=== PATIENT | female | born 1930 | race Caucasian/White ===

== ENCOUNTER 2016-05-30 15:17 | Inpatient (IN) | payer OTHER, MEDICARE ==
[~2016-05-30] VITALS: Ht 154.9 cm; Wt 49.9 kg
[~2016-05-30 15:17] MED LIST: ACEPHEN650 M1 PR; APAP500 MG PO; ASPI-COR81 M1 PO; ATORVASTATIN CA20 MG PO; BISACODYL PR; CALCIUM + D 6001 TAB PO; CRESTOR 10MG10 MG PO; DOCUSATE SODIU100 MG PO; FERROUS GLUCON300 MG PO; FISH OIL CONC1000 MG PO; FLEET ENEMA 131 UNIT RC; FOSAMAX 70MG70 MG PO; LEXAPRO 10MG10 MG PO; LOPRESSOR50 MG PO; METFORMIN HCL500 MG PO; MILK OF MAGNESI30 ML PO; NAMENDA10 MG PO; PRINIVIL 5MG5 MG PO; XARELTO10 MG PO
--- NOTE | 2016-05-30 15:23 | ED AMS/SEIZURE/WEAK/DIZZY ---
History of Present Illness General Chief Complaint: Altered Mental Status Stated Complaint: SENT FROM DR JULIO OFFICE FOR AMS Source: patient Exam Limitations: no limitations Allergies Coded Allergies: No Known Allergies (05/30/16) Reconcile Medications Acetaminophen (Acephen) 650 MG SUPP.RECT 1 SUPP NC Q4H PRN PAIN/TEMP>101 ( Reported) Acetaminophen 325 MG TABLET 2 TAB PO Q4H PRN PAIN/TEMP>101 (Reported) Aspirin (Ecotrin*) 81 MG TABLET.DR 1 TAB PO DAILY HEART/BLOOD (Reported) Atorvastatin Calcium (Lipitor) 20 MG TABLET 1 TAB PO DAILY CHOLESTEROL ( Reported) Bisacodyl (Dulcolax) 10 MG SUPP.RECT 1 SUP RC DAILY PRN CONSTIPATION ( Reported) Calcium Carbonate/Vitamin D3 (Oyster Shell 500 MG + Vit D Tb) (Unknown Strength) TABLET 1 TAB PO QAM SUPPLEMENT (Reported) Dimethicone (Proshield Plus) (Unknown Strength) OINT...G. 1 RADHA TOP TID REDNESS ON BUTTOCKS (Reported) Escitalopram Oxalate (Lexapro) 10 MG TABLET 1 TAB PO DAILY MENTAL HEALTH ( Reported) Lidocaine HCl 2 % JEL..ML. 1 RADHA TOP TID BOTH HANDS (Reported) Lisinopril (Prinivil) 5 MG TABLET 1 TAB PO DAILY BP (Reported) Magnesium Hydroxide (Milk Of Magnesia) 400 MG/5 ML ORAL.SUSP 30 ML PO Q3D PRN CONSTIPATION (Reported) Memantine HCl (Namenda) 10 MG TABLET 1 TAB PO BID MEMORY (Reported) Metoprolol Tartrate (Unknown Strength) TABLET 12.5 MG PO Q12H HEART/BP ( Reported) Na Phos,M-B/Na Phos,Di-Ba (Fleet Enema) 19 GRAM-7 GRAM/118 ML ENEMA 1 E RC DAILY PRN CONSTIPATION (Reported) Naloxone HCl (Narcan) 4 MG/ACTUATION SPRAY 4 MG LATASHA AD PRN OPIOID INDUCED RESP DEPRESSION (Reported) Sulfamethoxazole/Trimethoprim (Bactrim Ds Tablet) 800 MG-160 MG TABLET 1 TAB PO BID UTI Tizanidine HCl 2 MG TABLET 1.5 TAB PO BID MUSCLE RELAXER (Reported) Tizanidine HCl (Zanaflex) 2 MG CAPSULE 1 CAP PO QHS MUSCLE RELAXER (Reported) Triage Nurses Notes Reviewed? yes Onset: Abrupt Duration: minute(s): (15) Timing: single episode today Injury Environment: IN DR CANO'S OFFICE Severity: severe Associated Symptoms: UNRESPONSIVE HPI: This is an 86 year old female who presents to the ER from Dr. Cano's office for being found unresponsive in the wheelchair. According to Dr. Cano patient was there for a scheduled 3 month checkup from the nursing facility. The patients aid at bedside states that she is ususlly much more alert and talkative. Patient with stable vital signs, stable gluocse, only responsive to painful stimuli. (FARIDEH WILLAMS,MANSI) Vital Signs & Intake/Output Vital Signs & Intake/Output Vital Signs Date Time Temp Pulse Resp B/P Pulse O2 O2 Flow FiO2 Ox Delivery Rate 06/02 1304 98.4 86 18 138/72 06/02 1200 86 138/72 ED Intake and Output 06/03 0000 06/02 1200 Intake Total 420 Output Total 350 Balance 70 Intake, IV 320 Intake, Oral 100 Number 2 Bowel Movements Output, Urine 350 Past History Travel History Traveled to [place] past 21 day No Medical History Any Pertinent Medical History? see below for history Neurological: dementia Cardiovascular: hypertension, hyperlipidemia Musculoskeletal: OSTEOARTHRITIS L HIP FX 08/15/13 Psychiatric: depression History of MRSA: No History of VRE: No History of CDIFF: No Surgical History Surgical History: non-contributory Psychosocial History Who do you live with Family Services at Home None What is your primary language Mohawk Family History Family History, If Any: MOTHER FH: diabetes mellitus Hx Contributory? No (MANSI GONG MD) Review of Systems Review of Systems Constitutional: Reports: see HPI (UNABLE TO OBTAIN). Neurological/Psychological: Reports: see HPI (AMS). (MANSI GONG MD) Physical Exam Physical Exam General Appearance: well developed/nourished, lethargic, moderate distress, EYES CLOSED Head: atraumatic, normal appearance Eyes: Bilateral: PERRL. Ears, Nose, Throat: DRY MUCUS MEMBRANES Neck: normal inspection, supple Respiratory: normal breath sounds, chest non-tender, no respiratory distress Cardiovascular: regular rate/rhythm Peripheral Pulses: 2+ radial (R), 2+ radial (L) Gastrointestinal: soft, non-tender Extremities: normal range of motion Neurologic/Psych: LETHARGIC, UNRESPONSIVE Skin: intact, normal color, warm/dry Core Measures ACS in differential dx? No CVA/TIA Diagnosis: No Severe Sepsis Present: No Septic Shock Present: No (FARIDEH WILLAMS,MANSI) ED Sepsis Exam Date of Focused Sepsis Exam: 05/30/16 Time of Focused Sepsis Exam: 1530 Sepsis Cardiac Exam: Regular Rate/Rhythm Sepsis Resp Exam: CTA Sepsis Cap Refill Exam: <2 Sec Sepsis Peripheral Pulse Exam: Normal Sepsis Peripheral Pulse Location: Radial Sepsis Skin Color Exam: Normal for Ethnicity Skin Temp/Moisture Exam: Warm/Dry (MANSI GONG MD) Progress Differential Diagnosis: arrythmia, CVA/stroke, dehydration, encephalitis, electrolyte imbalance, hypoxia, intracranial Hem., intracranial mass/tumor, sepsis, UTI/pyelo Diagnostic Imaging: Viewed by Me: Radiology Read, CT Scan. Discussed w/RAD: Radiology Read, CT Scan. Radiology Impression: PATIENT: KATARINA ORTEGA PRESENT AGE: 86 PATIENT ACCOUNT NO: [id number] : 32 LOCATION: [facility] ORDERING PHYSICIAN: MANSI GONG MD SERVICE DATE: 05/30/16 EXAM TYPE: CAT - CT HEAD WO IV CONTRAST EXAMINATION: CT HEAD WITHOUT CONTRAST CLINICAL INFORMATION: Altered mental status. Rule out stroke. COMPARISON: Head CT dated 12/09/2014. TECHNIQUE: Contiguous axial imaging was performed from the skull base to vertex without intravenous administration of contrast. DLP: 600.71 mGy-cm FINDINGS: There is no evidence of acute intracranial hemorrhage or territorial infarction. No abnormal mass effect or midline shift is seen. Briggs to white matter differentiation is well preserved. No extra-axial fluid collections are identified. 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 There is diffuse parenchymal volume loss. Severe chronic white matter microangiopathy is noted. 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 The osseous structures and soft tissues are normal. The mastoid air cells and are well aerated. There is a small fluid level in the dependent portion of the left sphenoid sinus. IMPRESSION: Severe chronic white matter microangiopathy and diffuse parenchymal volume loss. No acute intracranial hemorrhage. The possibility of a focal acute ischemic process cannot be ruled out on the basis of this study given extent of white matter disease. DICTATED BY: MATTHIAS WILHELM MD DATE/TIME DICTATED:05/30/161610 GRINDER OPERATOR TOOL:CIRA DATE/TIME TRANSCRIBED:02/17/17 / 1611 CONFIDENTIAL, DO NOT COPY WITHOUT APPROPRIATE AUTHORIZATION. <Electronically signed in Other Vendor System> SIGNED BY: MATTHIAS WILHELM MD 05/30/16 1617 Initial ED EKG: NSR, LAD, PACS Rhythm Strip: normal sinus rhythm (MANSI GONG MD) Plan of Care: Orders Procedure Date/time Status Treatment of Swallowing 06/02 UNK Complete labs, cultures, ekg, tele monitor. IV fluid bolus ordered. abg, ammonia ordered. head ct, cxr. (MANSI GONG MD) Departure Departure Time of Disposition: 1804 Disposition: STILL A PATIENT Condition: Stable Clinical Impression Primary Impression: Altered mental status Secondary Impressions: Lactic acid acidosis, Prolonged Q-T interval on ECG, Syncope, UTI (urinary tract infection) Referrals: BRIA TATE MD (PCP/Family) Departure Forms: Customer Survey General Discharge Information Prescriptions: Current Visit Scripts Sulfamethoxazole/Trimethoprim (Bactrim Ds Tablet) 1 TAB PO BID #8 TAB Admission Note Spoke With: BRIA TATE MD Documentation of Exam: Documentation of any treatments & extenuating circumstances including Concerns Regarding Discharge (functional status, medication knowledge or non-compliance, living conditions, etc.) that warrant an admission rather than observation: [IV FLUIDS, IV ABX, F/U BLOOD AND URINE CULTURES, MONITOR I/O] (MANSI GONG MD) Critical Care Note Critical Care Note Critical Care Time: 30-74 min (MANSI GONG MD)
--- NOTE | 2016-05-30 15:34 | NUR ---
BLOODWORK SENT (LAV, SST, BLUE, GARY, PINK) RT CALLED FOR ABG CHEST XRAY AT BEDSIDE
--- NOTE | 2016-05-30 15:36 | NUR ---
PER AIDE, AT BEDSIDE, SHE IT TAKING PT'S WHEELCHAIR, GLASSES AND OTHER PERSONAL BELONGINGS BACK TO THE LONG-TERM. ALSO STATES THE DAUGHTER WAS INFORMED OF PTS EVAL IN ED.
--- NOTE | 2016-05-30 15:36 | NUR ---
PT BROUGHT FROM DR. CANO'S OFFICE S/P UNRESPONSIVE. PER AID, PT HAS BEEN UNRESPONSIVE SINCE AROUND 1300? PT ARRIVES IN ED RESPONSIVE TO PAINFUL STIMULI ONLY. PT'S VSS. DR. GONG AT BEDSIDE FOR EVAL ON ARRIVAL.
--- NOTE | 2016-05-30 15:42 | NUR ---
RESP AT BEDSIDE FOR ABG.
[2016-05-30 15:48] LABS: ABSOLUTE BASOPHIL COUNT 0 /CUMM (0.0-0.2); ABSOLUTE EOSINOPHIL COUNT 0 /CUMM (0.0-0.7); ABSOLUTE GRANULOCYTE CT 5.4 /CUMM (1.4-6.5); ABSOLUTE LYMPH COUNT 2.5 /CUMM (1.2-3.4); ABSOLUTE MONOCYTE COUNT 0.7 /CUMM (0.10-0.60); BASOPHIL % 0.5 % (0.0-2.0); EOSINOPHIL % 0.3 % (0-5); GRANULOCYTE % 61.8 % (42.2-75.2); HEMATOCRIT 38.3 % (37-47); MEAN CORPUSCULAR HGB 31.2 PG (27.0-31.0); MEAN CORPUSCULAR HGB CONC 32.9 G/DL (33.0-37.0); MEAN CORPUSCULAR VOLUME 94.7 FL (81.0-99.0); MEAN PLATELET VOLUME 8.6 FL (7.4-10.4); PLATELET COUNT 230 /CUMM (130-400); RBC DISTRIBUTION WIDTH 14.5 % (11.5-14.5); RED BLOOD CELL CT 4.04 /CUMM (4.20-5.40); WHITE BLOOD CELL COUNT 8.7 /CUMM (4.8-10.8)
--- NOTE | 2016-05-30 15:50 | NUR ---
PT TO CT SCAN VIA STRETCHER ON STEELWORKER WITH JOHNIE SINGH
--- NOTE | 2016-05-30 16:17 | CT SCAN REPORT ---
EXAMINATION: CT HEAD WITHOUT CONTRAST CLINICAL INFORMATION: Altered mental status. Rule out stroke. COMPARISON: Head CT dated 12/09/2014. TECHNIQUE: Contiguous axial imaging was performed from the skull base to vertex without intravenous administration of contrast. DLP: 600.71 mGy-cm FINDINGS: There is no evidence of acute intracranial hemorrhage or territorial infarction. No abnormal mass effect or midline shift is seen. Briggs to white matter differentiation is well preserved. No extra-axial fluid collections are identified. 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 There is diffuse parenchymal volume loss. Severe chronic white matter microangiopathy is noted. 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 The osseous structures and soft tissues are normal. The mastoid air cells and are well aerated. There is a small fluid level in the dependent portion of the left sphenoid sinus. IMPRESSION: Severe chronic white matter microangiopathy and diffuse parenchymal volume loss. No acute intracranial hemorrhage. The possibility of a focal acute ischemic process cannot be ruled out on the basis of this study given extent of white matter disease.
--- NOTE | 2016-05-30 16:25 | NUR ---
CRITICAL TEST RESULTS [id number] KATARINA ORTEGA 86 F TESTS AND RESULTS: LACTIC ACID 2.2 Results received and read back by: JOHNIE LEMUS Results received date and time: 05/30/16 4795 The following provider was notified of the results, and read the results back: DR. GONG Notified date and time: 05/30/16 at 1629
--- NOTE | 2016-05-30 16:51 | NUR ---
BLOOD SENT (1ST SET BCX, SST, GREEN, GARY, BLUE)
--- NOTE | 2016-05-30 17:22 | NUR ---
PT'S FAMILY REPORTS THAT OVER THE LAST COUPLE OF MONTHS, PT HAS BEEN DECLINING IN TERMS OF INTERACTION. PT USED TO CONVERSE FREQUENTLY, BUT SHE HAS NOT REALLY BEEN TALKING LIKE SHE USED TO FOR THE LAST COUPLE OF MONTHS.
--- NOTE | 2016-05-30 17:29 | RADIOLOGY REPORT ---
EXAMINATION: XR PORTABLE CHEST CLINICAL INFORMATION: Altered mental status. COMPARISON: Chest x-ray 12/09/2014 TECHNIQUE: Portable AP portable view of the chest was obtained. 3:32 PM FINDINGS: Status post median sternotomy for CABG. Heart size is normal. There are calcifications of thoracic aorta. Lungs are clear. No pulmonary vascular congestion or pleural effusion. No pneumothorax. Compared to prior chest x-ray 12/09/2014 is been no change. IMPRESSION: No acute abnormality of the chest.
--- NOTE | 2016-05-30 17:31 | NUR ---
ROCEPHIN INFUSING NOW.
[2016-05-30] MEDS ORDERED: ACETAMINOPHEN325 M2 PO (18:01)
[2016-05-30] MEDS ORDERED: ASPIRIN EC81 M1 PO (18:01)
[2016-05-30] MEDS ORDERED: LEXAPRO10 M1 PO (18:02)
[2016-05-30] MEDS ORDERED: NARCAN4 MG NAS (18:03)
--- NOTE | 2016-05-30 18:03 | NUR ---
DR. DEL ROSARIO AT BEDSIDE FOR EVAL.
[2016-05-30] MEDS ORDERED: PRINIVIL5 M1 PO (18:04)
[2016-05-30] MEDS ORDERED: ZANAFLEX2 M2 PO (18:05)
[2016-05-30] MEDS ORDERED: METOPROLOL TART25 M1 PO (18:05)
[2016-05-30] MEDS ORDERED: LIPITOR20 M2 PO (18:05)
[2016-05-30] MEDS ORDERED: TIZANIDINE HCL2 M1 PO (18:07)
[2016-05-30] MEDS ORDERED: NAMENDA10 M2 PO (18:07)
[2016-05-30] MEDS ORDERED: OYSTER SHELL 51 EACH PO (18:08)
[2016-05-30] MEDS ORDERED: DULCOLAX10 M1 RC (18:08)
[2016-05-30] MEDS ORDERED: MILK OF MA400 MG/52 PO (18:09)
[2016-05-30] MEDS ORDERED: FLEET ENEMA133 ML RC (18:09)
[2016-05-30] MEDS ORDERED: LIDOCAINE HCL5 ML TOP (18:11)
[2016-05-30] MEDS ORDERED: PROSHIELD PLUS113 GM TOP (18:13)
--- NOTE | 2016-05-30 18:26 | Admission Certification ---
Admission Certification Certification Statement - As attending physician, I certify that at the time of - admission, based on clinical presentation, severity of - symptoms, need for further diagnostic testing and - therapeutic interventions, and risk of adverse outcomes - without in-hospital treatment, in my clinical assessment, - this patient requires an acute hospital stay for a minimum - of two nights or longer. I have also considered psychsocial - factors such as support system, advanced age, financial - issues, cognitive issues, and failed out-patient treatments, - past re-admission history, safety of patient, and lack of - compliance as applicable. Specific rationale supporting this admission is: Normal UA elevated lactic acid less responsive probable sepsis of urological origin also pre renal azotemia.
--- NOTE | 2016-05-30 18:29 | History & Physical ---
General Information and HPI MD Statement: I have seen and personally examined KATARINA ORTEGA and documented this H&P. The patient is a 86 year old F who presented with a patient stated chief complaint of [Altered mentation and cloudy urine]. Source of Information: family, old records Exam Limitations: clinical condition History of Present Illness: 86 y/o lady lady with a PMH of CAD status post CABG 34 ALANIS graft to LAD and individual saphenous vein grafts to circumflex marginal branch and posterior descending artery (2009), DM, HTN, HLD, AAA. 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 She currently resides at [facility] and information obtained from the patients daughter: over the past 2 months she has had a progressive decline in her overall health. She reports 4-5 months of primarily liquid intake. Due to her current clinical condition she is unable to give us additional history at this time. Allergies/Medications Allergies: Coded Allergies: No Known Allergies (05/30/16) Home Med list Acetaminophen (Acephen) 650 MG SUPP.RECT 1 SUPP RI Q4H PRN PAIN/TEMP>101 ( Reported) Acetaminophen 325 MG TABLET 2 TAB PO Q4H PRN PAIN/TEMP>101 (Reported) Aspirin (Ecotrin*) 81 MG TABLET.DR 1 TAB PO DAILY HEART/BLOOD (Reported) Atorvastatin Calcium (Lipitor) 20 MG TABLET 1 TAB PO DAILY CHOLESTEROL ( Reported) Bisacodyl (Dulcolax) 10 MG SUPP.RECT 1 SUP RC DAILY PRN CONSTIPATION ( Reported) Calcium Carbonate/Vitamin D3 (Oyster Shell 500 MG + Vit D Tb) (Unknown Strength) TABLET 1 TAB PO QAM SUPPLEMENT (Reported) Dimethicone (Proshield Plus) (Unknown Strength) OINT...G. 1 RADHA TOP TID REDNESS ON BUTTOCKS (Reported) Escitalopram Oxalate (Lexapro) 10 MG TABLET 1 TAB PO DAILY MENTAL HEALTH ( Reported) Lidocaine HCl 2 % JEL..ML. 1 RADHA TOP TID BOTH HANDS (Reported) Lisinopril (Prinivil) 5 MG TABLET 1 TAB PO DAILY BP (Reported) Magnesium Hydroxide (Milk Of Magnesia) 400 MG/5 ML ORAL.SUSP 30 ML PO Q3D PRN CONSTIPATION (Reported) Memantine HCl (Namenda) 10 MG TABLET 1 TAB PO BID MEMORY (Reported) Metoprolol Tartrate (Unknown Strength) TABLET 12.5 MG PO Q12H HEART/BP ( Reported) Na Phos,M-B/Na Phos,Di-Ba (Fleet Enema) 19 GRAM-7 GRAM/118 ML ENEMA 1 E RC DAILY PRN CONSTIPATION (Reported) Naloxone HCl (Narcan) 4 MG/ACTUATION SPRAY 4 MG LATASHA AD PRN OPIOID INDUCED RESP DEPRESSION (Reported) Tizanidine HCl (Zanaflex) 2 MG CAPSULE 1 CAP PO QHS MUSCLE RELAXER (Reported) Tizanidine HCl 2 MG TABLET 1.5 TAB PO BID MUSCLE RELAXER (Reported) Past History Travel History Traveled to [place] past 21 day No Medical History Neurological: dementia, SEIZURES EENT: NONE Cardiovascular: aortic aneurysm, hypertension, hyperlipidemia Respiratory: NONE Gastrointestinal: NONE Hepatic: NONE Renal: NONE Musculoskeletal: OSTEOARTHRITIS L HIP FX 08/15/13 Psychiatric: depression Endocrine: NONE Blood Disorders: NONE Cancer(s): NONE 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 Cardiovascular: Reports: see HPI. Respiratory: Reports: see HPI. Musculoskeletal: Reports: see HPI. Neurological/Psychological: Reports: see HPI. Exam & Diagnostic Data Last 24 Hrs of Vital Signs/I&O Vital Signs Date Time Temp Pulse Resp B/P Pulse O2 O2 Flow FiO2 Ox Delivery Rate 05/31 0903 97.1 64 16 158/72 05/31 0801 97.1 63 16 158/72 95 05/31 0122 97 05/30 2036 97.4 63 14 164/74 97 Room Air 05/30 1947 96.6 72 24 147/73 94 Room Air 05/30 1802 97.4 73 15 135/77 95 Room Air Room Air 05/30 1720 97.7 92 20 158/77 95 Room Air Room Air 05/30 1618 97.5 87 15 172/102 94 Room Air Room Air 05/30 1530 95 Room Air Room Air 05/30 1525 98.7 96 15 159/94 92 Room Air Room Air Intake & Output 05/31 1600 05/31 0800 05/31 0000 Intake Total 525 500 Output Total 200 520 Balance 325 -20 Intake, IV 500 Intake, Oral 525 0 Output, Urine 200 520 Patient 110 lb Weight Physical Exam General Appearance Arousable toloud verbal commands. Lethargic appearing HEENT Dry mucous membranes Cardiovascular Normal S1, Normal S2 Lungs DIminished breath sounds in the basilar regions BL Abdomen Soft, No Tenderness Neurological Patient is difficult to arouse at his time and unable to follow commands appropriately Extremities No Edema, Normal Pulses Last 24 Hrs of Labs/Bk: Laboratory Tests 05/31/16 0505: Troponin I 0.02 05/31/16 0505: Anion Gap 9, Estimated GFR 43 L, BUN/Creatinine Ratio 31.7 H, CBC w Diff NO MAN DIFF REQ, RBC 3.20 L, MCV 95.7, MCH 31.6 H, RDW 14.2, MPV 8.2, Gran % 70.4 , Lymphocytes % 20.4 L, Monocytes % 7.8, Eosinophils % 1.0, Basophils % 0.4, Absolute Granulocytes 4.9, Absolute Lymphocytes 1.4, Absolute Monocytes 0.5, Absolute Eosinophils 0.1, Absolute Basophils 0, PUBS MCHC 33.0 05/30/16 2245: Anion Gap 10, Estimated GFR 53 L, BUN/Creatinine Ratio 39.0 H, Troponin I 0.02 , PT 12.5, INR 1.19 05/30/16 1839: Lactic Acid 0.8 05/30/16 1613: Urine Color STRAW, Urine Clarity TURBD H, Urine pH 6.0, Ur Specific [place] 1.025, Urine Protein 100 H, Urine Ketones NEG, Urine Nitrite POS H, Urine Bilirubin NEG, Urine Urobilinogen 0.2, Ur Leukocyte Esterase LARGE H, Ur Microscopic SEDIMENT EXAMINED, Urine WBC PACKD H, Urine Hemoglobin MOD H, Urine Glucose NEG 05/30/16 1613: Urine Opiates Screen < 100.00, Methadone Screen 50, Barbiturate Screen < 60, Ur Phencyclidine Scrn < 6.00, Amphetamines Screen < 100, U Benzodiazepines Scrn < 85, Urine Cocaine Screen < 50, Urine Cannabis Screen < 5.00, Urine Osmolality 462, Ur Random Creatinine 98.7, Ur Random Sodium 83, Ur Random Potassium 55.0, Fraction Sodium Excret 0.7 05/30/16 1540: pH 7.40, pCO2 41, pO2 66 L, HCO3 25, ABG O2 Sat (Measured) 92.0 L, P-50 (Temp Corrected) N, Carboxyhemoglobin 0.1 L, O2 Concentration % R/A, Temperature 98.7 , Phlebotomy Draw Site RIGHT RADIAL 05/30/16 1529: Anion Gap 12, Estimated GFR 43 L, BUN/Creatinine Ratio 38.3 H, Glucose 117 H, Lactic Acid 2.2 H, Calcium 8.6, Phosphorus 3.9, Magnesium 2.4 H, Total Bilirubin 0.7, AST 28, ALT 22, Alkaline Phosphatase 119, Ammonia < 9 L, Troponin I 0.01, Total Protein 7.1, Albumin 3.5, Globulin 3.6, Albumin/Globulin Ratio 1.0 L, CBC w Diff NO MAN DIFF REQ, RBC 4.04 L, MCV 94.7, MCH 31.2 H, RDW 14.5, MPV 8.6, Gran % 61.8, Lymphocytes % 29.0, Monocytes % 8.4, Eosinophils % 0.3, Basophils % 0.5, Absolute Granulocytes 5.4, Absolute Lymphocytes 2.5, Absolute Monocytes 0.7 H, Absolute Eosinophils 0, Absolute Basophils 0, PUBS MCHC 32.9 L Microbiology 05/30 1715 BLOOD: Blood Culture - RECD 05/30 1655 NASOPHARYN: Influenza Virus A & B Rapid Smear - COMP 05/30 1645 BLOOD: Blood Culture - RECD 05/30 1613 URINE ROUT: Urine Culture - RECD Assessment/Plan Assessment: 86 y/o lady lady with a PMH of CAD status post CABG 34 ALANIS graft to LAD and individual saphenous vein grafts to circumflex marginal branch and posterior descending artery (2009), DM, HTN, HLD, AAA. Rosie in from [facility] after a syncopal episode VS: 159/72, HR 96, RR 50, SPO2 92% on RA, T 98.7 Pertinent labs: WBC 8.7, H&H 12.6/36.3, platelets 230 Sodium 153 Potassium 4.8 Lactic acid 2.2 BUN/CR 46/1.2 UA: Turbid color, 100 protein, positive nitrites, large leukocyte esterase, packed WBCs CXR: No acute abdomen of chest Head CT: Severe chronic white matter microangiopathy and diffuse parenchymal volume loss. No acute intracranial hemorrhage. The possibility of a focal acute ischemic process cannot be ruled out on the basis of this study given extent of white matter disease. Problem list: 1. Syncopal episode 2. UTI 3. Hypernatremia 4. Elevated lactic acid 5. Constipation 6. Acute kidney injury 7. Dehydration Plan: * Admit to telemetry for continuous cardiac monitoring. Serial EKG/troponin * Follow up orthostatics in the a.m. * Fluid hydration in the setting of acute kidney injury * Follow-up urine culture. Patient received single dose of ceftriaxone and vancomycin in the ER. Continue her on ceftriaxone and if worsening clinical picture expand coverage to ceftaz * Hyponatremia likely secondary to dehydration. We'll start patient on D5 NS or half D5 NS. Serial electrolytes to assess sodium correction * Elevated lactic acid resolved * NPO at this time. Obtain swallow eval once more alert * Update patient's daughter Aliyah Covarrubias * DVT prophylaxis: ALPs * CODE STATUS: DNR/DNI AM team: We were unable to obtain a transfer CMR/W10 from [facility]. Kindly contact the facility in the AM and have them fax it over. Restart tizanidine and Lasix once medically improved As Ranked By This Provider Problem List: 1. UTI (urinary tract infection) 2. Syncope 3. Altered mental status 4. Lactic acid acidosis 5. Hypernatremia 6. AMELIA (acute kidney injury) Core Measures/Miscellaneous Acute Coronary Syndrome ACS Diagnosis: No Cerebrovascular Accident CVA/TIA Diagnosis: No Congestive Heart Failure CHF Diagnosis: No Venous Thromboembolism VTE Risk Factors: Age > 40 VTE Prophylaxis Ordered Inpt: Mechanical (ALPS/TEDS) No Mech VTE prophylaxis d/t: No contraindications No VTE Pharm Prophylaxis d/t: No contraindications VTE Diagnosis: No VTE Type: NONE VTE Confirmed by (Test): NONE Severe Sepsis Severe Sepsis Present: No Septic Shock Septic Shock Present: No Miscellaneous Documentation Attending Case Discussed With: BRIA TATE MD Primary Care Physician: BRIA TATE MD Patient sees these Specialists Dr Benavidez (cardiology) Level of Patient Care: Telemetry Resident Review Statement Resident Statement: examined this patient, discussed with supply chain intern, agreed with supply chain intern, discussed with family, discussed with nursing, reviewed images
--- NOTE | 2016-05-30 18:30 | PN- Att Addend ---
Attending Addendum Attending Brief Note 86-year-old white female resident of [facility], with a baseline history of Alzheimer's unable to give any history of her daughter for the last several days not being herself. She came for a routine cardiology visit to Dr. Benavidez over there she had change in mental status was sent to the emergency room , her blood pressure is stable, but after a [place] catheter was inserted was found to have a very dirty urine and an abnormal urinalysis, very slightly elevated lactic acid. Hyponatremic hypochloremic. all cultures were obtained will start broad-spectrum antibiotics. 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 Laboratory Tests 05/30 05/30 1613 1540 Blood Gas pH (7.35 - 7.45 PH) 7.40 pCO2 (35 - 45 TORR) 41 pO2 (80 - 100 TORR) 66 L HCO3 (21 - 28 MEQ/L) 25 ABG O2 Sat (Measured) (>96.0 %) 92.0 L P-50 (Temp Corrected) N Carboxyhemoglobin (1.5 - 5.0 %) 0.1 L O2 Concentration % R/A Temperature (97.0 - 100.0 FARH) 98.7 Miscellaneous Phlebotomy Draw Site RIGHT RADIAL Urines Urine Color (YEL,AMB,STR) STRAW Urine Clarity (CLEAR) TURBD H Urine pH (5.0 - 8.0) 6.0 Ur Specific [place] (1.001 - 1.035) 1.025 Urine Protein (NEG,<30 MG/DL) 100 H Urine Ketones (NEG) NEG Urine Nitrite (NEG) POS H Urine Bilirubin (NEG) NEG Urine Urobilinogen (0.1 - 1.0 EU/dl) 0.2 Ur Leukocyte Esterase (NEG) LARGE H Ur Microscopic SEDIMENT EXAMINED Urine WBC (0 - 2 /HPF) PACKD H Urine Hemoglobin (NEG) MOD H Urine Glucose (N MG/DL) NEG 05/30 1529 Chemistry Sodium (137 - 145 mmol/L) 153 H Potassium (3.5 - 5.1 mmol/L) 4.8 Chloride (98 - 107 mmol/L) 113 H Carbon Dioxide (22 - 30 mmol/L) 28 Anion Gap (5 - 16) 12 BUN (7 - 17 mg/dL) 46 H Creatinine (0.5 - 1.0 mg/dL) 1.2 H Estimated GFR (>60 ml/min) 43 L BUN/Creatinine Ratio (7 - 25 %) 38.3 H Glucose (65 - 99 mg/dL) 117 H Lactic Acid (0.7 - 2.1 mmol/L) 2.2 H Calcium (8.4 - 10.2 mg/dL) 8.6 Magnesium (1.6 - 2.3 mg/dL) 2.4 H Total Bilirubin (0.2 - 1.3 mg/dL) 0.7 AST (14 - 36 U/L) 28 ALT (9 - 52 U/L) 22 Alkaline Phosphatase (<127 U/L) 119 Ammonia (9 - 30 umol/L) < 9 L Troponin I (< 0.11 ng/ml) 0.01 Total Protein (6.3 - 8.2 g/dL) 7.1 Albumin (3.5 - 5.0 g/dL) 3.5 Globulin (1.9 - 4.2 gm/dL) 3.6 Albumin/Globulin Ratio (1.1 - 2.2 %) 1.0 L Hematology CBC w Diff NO MAN DIFF REQ WBC (4.8 - 10.8 /CUMM) 8.7 RBC (4.20 - 5.40 /CUMM) 4.04 L Hgb (12.0 - 16.0 G/DL) 12.6 Hct (37 - 47 %) 38.3 MCV (81.0 - 99.0 FL) 94.7 MCH (27.0 - 31.0 PG) 31.2 H RDW (11.5 - 14.5 %) 14.5 Plt Count (130 - 400 /CUMM) 230 MPV (7.4 - 10.4 FL) 8.6 Gran % (42.2 - 75.2 %) 61.8 Lymphocytes % (20.5 - 51.1 %) 29.0 Monocytes % (1.7 - 9.3 %) 8.4 Eosinophils % (0 - 5 %) 0.3 Basophils % (0.0 - 2.0 %) 0.5 Absolute Granulocytes (1.4 - 6.5 /CUMM) 5.4 Absolute Lymphocytes (1.2 - 3.4 /CUMM) 2.5 Absolute Monocytes (0.10 - 0.60 /CUMM) 0.7 H Absolute Eosinophils (0.0 - 0.7 /CUMM) 0 Absolute Basophils (0.0 - 0.2 /CUMM) 0 PUBS MCHC (33.0 - 37.0 G/DL) 32.9 L
--- NOTE | 2016-05-30 18:42 | NUR ---
REPEAT LACTIC ACID DRAWN AND SENT TO LAB.
--- NOTE | 2016-05-30 19:39 | NUR ---
PT RESTING ON STRETCHER. RR NOTED.
--- NOTE | 2016-05-30 20:02 | NUR ---
BED ASSIGNMENT [phone]
--- NOTE | 2016-05-30 20:42 | NUR ---
THIS RN CALLED RN ON TELE FOR REPORT. THIS RN WAS TOLD THAT [employer]ACLE TECHNICAL DEVELOPER WILL RETURN CALL.
--- NOTE | 2016-05-30 21:10 | NUR ---
REPORT GIVEN TO SAMANTHA ALEMAN ON TELEMETRY.
--- NOTE | 2016-05-30 21:12 | NUR ---
[facility] CALLED FOR TRANSPORT TO [facility].
[2016-05-30 23:23] LABS: PT 12.5 SEC (9.4-12.5)
[2016-05-31 05:49] LABS: ABSOLUTE BASOPHIL COUNT 0 /CUMM (0.0-0.2); ABSOLUTE EOSINOPHIL COUNT 0.1 /CUMM (0.0-0.7); ABSOLUTE GRANULOCYTE CT 4.9 /CUMM (1.4-6.5); ABSOLUTE LYMPH COUNT 1.4 /CUMM (1.2-3.4); ABSOLUTE MONOCYTE COUNT 0.5 /CUMM (0.10-0.60); BASOPHIL % 0.4 % (0.0-2.0); GRANULOCYTE % 70.4 % (42.2-75.2); MEAN CORPUSCULAR HGB 31.6 PG (27.0-31.0); MEAN CORPUSCULAR VOLUME 95.7 FL (81.0-99.0); MEAN PLATELET VOLUME 8.2 FL (7.4-10.4); PLATELET COUNT 161 /CUMM (130-400); RBC DISTRIBUTION WIDTH 14.2 % (11.5-14.5)
[2016-05-31 06:01] LABS: HEMATOCRIT 30.6 % (37-47)
[2016-05-31 08:01] VITALS: BP 158/72
--- NOTE | 2016-05-31 10:49 | PN- Pulmonary ---
Subjective HPI/Critical Care Issues: Doing better No worsening symptoms Recently did seem to have a syncopal episode Vital signs reviewed afebrile heart rate 64 Significant data Creatinine 1.2 sodium still elevated Lactic acid level initially was normal White count 7 hemoglobin 10 which has reduced since yesterday ABGs reviewed from yesterday which showed PaO2 of 66 So far cultures are pending previous urine culture had grown Proteus which was resistant to Cipro and nitrofurantoin Had chest x-ray was unremarkable head CT showed severe chronic white matter microangiopathy with diffuse parenchymal volume loss. Objective Current Medications: Current Medications Sig/Kayden Start time Last Medication Dose Route Stop Time Status Admin Acetaminophen 650 MG Q6P PRN 05/30 1830 AC PO Aspirin Buffered 81 MG DAILY 05/31 1000 AC 05/31 PO 0902 Atorvastatin Calcium 20 MG 1700 05/31 1700 AC PO Ceftriaxone Sodium 0 .STK-MED ONE 05/30 1727 DC .ROUTE Ceftriaxone Sodium 1,000 MG ONCE ONE 05/30 1700 DC 05/30 IV 05/30 1701 1731 Dextrose/Sodium 1,000 ML Q13H 05/30 1930 DC 05/30 Chloride IV 2005 Dextrose/Water 1,000 ML ONCE ONE 05/31 0615 AC 05/31 IV 05/31 1414 0635 Escitalopram Oxalate 10 MG DAILY 05/31 1000 AC 05/31 PO 0902 Lidocaine 1 RADHA TID 05/30 2200 AC TOP Magnesium Hydroxide 30 ML Q3D PRN 05/30 2000 AC PO Memantine 10 MG BID 05/30 2200 AC 05/31 PO 0903 Metoprolol Tartrate 12.5 MG BID 05/31 1000 AC 05/31 PO 0903 Oxycodone/ 1 TAB Q6P PRN 05/30 1830 AC Acetaminophen PO Oxycodone/ 2 TAB Q6P PRN 05/30 1830 AC Acetaminophen PO Sodium Chloride 500 ML BOLUS ONE 05/30 1815 DC 05/30 IV 05/30 1914 1847 Sodium Chloride 500 ML BOLUS ONE 05/30 1630 DC 05/30 IV 05/30 1729 1640 Sodium Chloride 500 ML BOLUS ONE 05/30 1530 DC 05/30 IV 05/30 1629 1533 Tizanidine HCl 3 MG BID 05/30 2200 AC 05/31 PO 0903 Vancomycin HCl 0 .STK-MED ONE 05/30 1947 DC .ROUTE Vancomycin HCl 1,000 MG ONCE ONE 05/30 1930 DC 05/30 Dextrose/Water 250 ML IV 05/30 Vital Signs & I&O Last 24 Hrs of Vitals and I&O: Vital Signs Date Time Temp Pulse Resp B/P Pulse O2 O2 Flow FiO2 Ox Delivery Rate 05/31 0903 97.1 64 16 158/72 05/31 0801 97.1 63 16 158/72 95 05/31 0122 97 05/30 2036 97.4 63 14 164/74 97 Room Air 05/30 1947 96.6 72 24 147/73 94 Room Air 05/30 1802 97.4 73 15 135/77 95 Room Air Room Air 05/30 1720 97.7 92 20 158/77 95 Room Air Room Air 05/30 1618 97.5 87 15 172/102 94 Room Air Room Air 05/30 1530 95 Room Air Room Air 05/30 1525 98.7 96 15 159/94 92 Room Air Room Air Intake & Output 05/31 1600 05/31 0800 05/31 0000 Intake Total 525 500 Output Total 200 520 Balance 325 -20 Intake, IV 500 Intake, Oral 525 0 Output, Urine 200 520 Patient 110 lb Weight Laboratory Tests 05/31 05/31 05/30 05/30 0505 0505 224 1839 Chemistry Sodium (137 - 145 mmol/L) 154 H 153 H Potassium (3.5 - 5.1 mmol/L) 4.6 4.0 Chloride (98 - 107 mmol/L) 116 H 117 H Carbon Dioxide (22 - 30 mmol/L) 29 26 Anion Gap (5 - 16) 9 10 BUN (7 - 17 mg/dL) 38 H 39 H Creatinine (0.5 - 1.0 mg/dL) 1.2 H 1.0 Estimated GFR (>60 ml/min) 43 L 53 L BUN/Creatinine Ratio (7 - 25 %) 31.7 H 39.0 H Lactic Acid (0.7 - 2.1 mmol/L) 0.8 Troponin I (< 0.11 ng/ml) 0.02 0.02 Coagulation PT (9.4 - 12.5 SEC) 12.5 INR (0.90 - 1.19) 1.19 Hematology CBC w Diff NO MAN DIFF REQ WBC (4.8 - 10.8 /CUMM) 7.0 RBC (4.20 - 5.40 /CUMM) 3.20 L Hgb (12.0 - 16.0 G/DL) 10.1 L Hct (37 - 47 %) 30.6 L MCV (81.0 - 99.0 FL) 95.7 MCH (27.0 - 31.0 PG) 31.6 H RDW (11.5 - 14.5 %) 14.2 Plt Count (130 - 400 /CUMM) 161 MPV (7.4 - 10.4 FL) 8.2 Gran % (42.2 - 75.2 %) 70.4 Lymphocytes % (20.5 - 51.1 %) 20.4 L Monocytes % (1.7 - 9.3 %) 7.8 Eosinophils % (0 - 5 %) 1.0 Basophils % (0.0 - 2.0 %) 0.4 Absolute Granulocytes (1.4 - 6.5 /CUMM) 4.9 Absolute Lymphocytes (1.2 - 3.4 /CUMM) 1.4 Absolute Monocytes (0.10 - 0.60 /CUMM) 0.5 Absolute Eosinophils (0.0 - 0.7 /CUMM) 0.1 Absolute Basophils (0.0 - 0.2 /CUMM) 0 PUBS MCHC (33.0 - 37.0 G/DL) 33.0 05/30 05/30 1613 1613 Toxicology Urine Opiates Screen (>2000 NG/ML) < 100.00 Methadone Screen (>300 NG/ML) 50 Barbiturate Screen (>200 NG/ML) < 60 Ur Phencyclidine Scrn (>25 NG/ML) < 6.00 Amphetamines Screen (>1000 NG/ML) < 100 U Benzodiazepines Scrn (>200 NG/ML) < 85 Urine Cocaine Screen (>300 NG/ML) < 50 Urine Cannabis Screen (>50 NG/ML) < 5.00 Urines Urine Color (YEL,AMB,STR) STRAW Urine Clarity (CLEAR) TURBD H Urine pH (5.0 - 8.0) 6.0 Ur Specific [place] (1.001 - 1.035) 1.025 Urine Protein (NEG,<30 MG/DL) 100 H Urine Ketones (NEG) NEG Urine Nitrite (NEG) POS H Urine Bilirubin (NEG) NEG Urine Urobilinogen (0.1 - 1.0 EU/dl) 0.2 Ur Leukocyte Esterase (NEG) LARGE H Ur Microscopic SEDIMENT EXAMINED Urine WBC (0 - 2 /HPF) PACKD H Urine Hemoglobin (NEG) MOD H Urine Osmolality (300 - 1000 MOSM/KG) 462 Ur Random Creatinine (mg/dL) 98.7 Ur Random Sodium (30 - 90 mmol/L) 83 Ur Random Potassium (mmol/L) 55.0 Fraction Sodium Excret (<1% %) 0.7 Urine Glucose (N MG/DL) NEG 05/30 05/30 1540 1529 Blood Gas pH (7.35 - 7.45 PH) 7.40 pCO2 (35 - 45 TORR) 41 pO2 (80 - 100 TORR) 66 L HCO3 (21 - 28 MEQ/L) 25 ABG O2 Sat (Measured) (>96.0 %) 92.0 L P-50 (Temp Corrected) N Carboxyhemoglobin (1.5 - 5.0 %) 0.1 L O2 Concentration % R/A Temperature (97.0 - 100.0 FARH) 98.7 Chemistry Sodium (137 - 145 mmol/L) 153 H Potassium (3.5 - 5.1 mmol/L) 4.8 Chloride (98 - 107 mmol/L) 113 H Carbon Dioxide (22 - 30 mmol/L) 28 Anion Gap (5 - 16) 12 BUN (7 - 17 mg/dL) 46 H Creatinine (0.5 - 1.0 mg/dL) 1.2 H Estimated GFR (>60 ml/min) 43 L BUN/Creatinine Ratio (7 - 25 %) 38.3 H Glucose (65 - 99 mg/dL) 117 H Lactic Acid (0.7 - 2.1 mmol/L) 2.2 H Calcium (8.4 - 10.2 mg/dL) 8.6 Phosphorus (2.5 - 4.5 mg/dL) 3.9 Magnesium (1.6 - 2.3 mg/dL) 2.4 H Total Bilirubin (0.2 - 1.3 mg/dL) 0.7 AST (14 - 36 U/L) 28 ALT (9 - 52 U/L) 22 Alkaline Phosphatase (<127 U/L) 119 Ammonia (9 - 30 umol/L) < 9 L Troponin I (< 0.11 ng/ml) 0.01 Total Protein (6.3 - 8.2 g/dL) 7.1 Albumin (3.5 - 5.0 g/dL) 3.5 Globulin (1.9 - 4.2 gm/dL) 3.6 Albumin/Globulin Ratio (1.1 - 2.2 %) 1.0 L Hematology CBC w Diff NO MAN DIFF REQ WBC (4.8 - 10.8 /CUMM) 8.7 RBC (4.20 - 5.40 /CUMM) 4.04 L Hgb (12.0 - 16.0 G/DL) 12.6 Hct (37 - 47 %) 38.3 MCV (81.0 - 99.0 FL) 94.7 MCH (27.0 - 31.0 PG) 31.2 H RDW (11.5 - 14.5 %) 14.5 Plt Count (130 - 400 /CUMM) 230 MPV (7.4 - 10.4 FL) 8.6 Gran % (42.2 - 75.2 %) 61.8 Lymphocytes % (20.5 - 51.1 %) 29.0 Monocytes % (1.7 - 9.3 %) 8.4 Eosinophils % (0 - 5 %) 0.3 Basophils % (0.0 - 2.0 %) 0.5 Absolute Granulocytes (1.4 - 6.5 /CUMM) 5.4 Absolute Lymphocytes (1.2 - 3.4 /CUMM) 2.5 Absolute Monocytes (0.10 - 0.60 /CUMM) 0.7 H Absolute Eosinophils (0.0 - 0.7 /CUMM) 0 Absolute Basophils (0.0 - 0.2 /CUMM) 0 PUBS MCHC (33.0 - 37.0 G/DL) 32.9 L Miscellaneous Phlebotomy Draw Site RIGHT RADIAL Microbiology Date/Time Procedure - Status Source Growth 05/30 1715 Blood Culture - RECD BLOOD 05/30 1655 Influenza Virus A & B Rapid Smear - COMP NASOPHARYN 05/30 1645 Blood Culture - RECD BLOOD 05/30 1613 Urine Culture - RECD URINE ROUT Impression/Plan Impression/Plan Impression/Plan: Physical Exam General Appearance Arousable toloud verbal commands. HEENT Dry mucous membranes Cardiovascular Normal S1, Normal S2 Lungs DIminished breath sounds in the basilar regions BL Abdomen Soft, No Tenderness Neurological Patient is difficult to arouse at his time and unable to follow commands appropriately Extremities No Edema, Normal Pulses IMPRESSION 86 y/o lady lady with a PMH of CAD status post CABG 34 ALANIS graft to LAD and individual saphenous vein grafts to circumflex marginal branch and posterior descending artery (2009), DM, HTN, HLD, AAA. 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
--- NOTE | 2016-05-31 14:29 | Cons- Cardiology ---
General Information and HPI Consulting Request Date of Consult: 05/31/16 Requested By: BRIA TATE MD Reason for Consult: Change in mental status, question unresponsiveness, question syncope. Source of Information: patient, old records Exam Limitations: clinical condition, confusion History of Present Illness: This patient is an 86-year-old female with significant dementia. She has a history of coronary artery bypass surgery in the past. She had a routine visit with Dr. Benavidez yesterday who found her to be lethargic and poorly responsive and sent her to the emergency room. There she was found to have a probable urinary tract infection and to be dehydrated. She was not having any cardiac complaints. The patient cannot give me any history today because of her underlying dementia. Allergies/Medications Allergies: Coded Allergies: No Known Allergies (05/30/16) Home Med List: Acetaminophen (Acephen) 650 MG SUPP.RECT 1 SUPP [place] Q4H PRN PAIN/TEMP>101 ( Reported) Acetaminophen 325 MG TABLET 2 TAB PO Q4H PRN PAIN/TEMP>101 (Reported) Aspirin (Ecotrin*) 81 MG TABLET.DR 1 TAB PO DAILY HEART/BLOOD (Reported) Atorvastatin Calcium (Lipitor) 20 MG TABLET 1 TAB PO DAILY CHOLESTEROL ( Reported) Bisacodyl (Dulcolax) 10 MG SUPP.RECT 1 SUP RC DAILY PRN CONSTIPATION ( Reported) Calcium Carbonate/Vitamin D3 (Oyster Shell 500 MG + Vit D Tb) (Unknown Strength) TABLET 1 TAB PO QAM SUPPLEMENT (Reported) Dimethicone (Proshield Plus) (Unknown Strength) OINT...G. 1 RADHA TOP TID REDNESS ON BUTTOCKS (Reported) Escitalopram Oxalate (Lexapro) 10 MG TABLET 1 TAB PO DAILY MENTAL HEALTH ( Reported) Lidocaine HCl 2 % JEL..ML. 1 RADHA TOP TID BOTH HANDS (Reported) Lisinopril (Prinivil) 5 MG TABLET 1 TAB PO DAILY BP (Reported) Magnesium Hydroxide (Milk Of Magnesia) 400 MG/5 ML ORAL.SUSP 30 ML PO Q3D PRN CONSTIPATION (Reported) Memantine HCl (Namenda) 10 MG TABLET 1 TAB PO BID MEMORY (Reported) Metoprolol Tartrate (Unknown Strength) TABLET 12.5 MG PO Q12H HEART/BP ( Reported) Na Phos,M-B/Na Phos,Di-Ba (Fleet Enema) 19 GRAM-7 GRAM/118 ML ENEMA 1 E RC DAILY PRN CONSTIPATION (Reported) Naloxone HCl (Narcan) 4 MG/ACTUATION SPRAY 4 MG LATASHA AD PRN OPIOID INDUCED RESP DEPRESSION (Reported) Tizanidine HCl (Zanaflex) 2 MG CAPSULE 1 CAP PO QHS MUSCLE RELAXER (Reported) Tizanidine HCl 2 MG TABLET 1.5 TAB PO BID MUSCLE RELAXER (Reported) Current Medications: Current Medications Sig/Kayden Start time Last Medication Dose Route Stop Time Status Admin Acetaminophen 650 MG Q6P PRN 05/30 1830 AC PO Aspirin Buffered 81 MG DAILY 05/31 1000 AC 05/31 PO 0902 Atorvastatin Calcium 20 MG 1700 05/31 1700 AC PO Ceftriaxone Sodium 0 .STK-MED ONE 05/30 1727 DC .ROUTE Ceftriaxone Sodium 1,000 MG ONCE ONE 05/30 1700 DC 05/30 IV 05/30 1701 1731 Dextrose/Sodium 1,000 ML Q13H 05/30 1930 DC 05/30 Chloride IV 2005 Dextrose/Water 1,000 ML Q13H 05/31 1215 AC IV Dextrose/Water 1,000 ML ONCE ONE 05/31 0615 DC 05/31 IV 05/31 1414 0635 Escitalopram Oxalate 10 MG DAILY 05/31 1000 AC 05/31 PO 0902 Lidocaine 1 RADHA TID 05/30 2200 AC TOP Magnesium Hydroxide 30 ML Q3D PRN 05/30 2000 AC PO Memantine 10 MG BID 05/30 2200 AC 05/31 PO 0903 Metoprolol Tartrate 12.5 MG BID 05/31 1000 AC 05/31 PO 0903 Oxycodone/ 1 TAB Q6P PRN 05/30 1830 DC Acetaminophen PO Oxycodone/ 2 TAB Q6P PRN 05/30 1830 DC Acetaminophen PO Polyethylene Glycol 17 GM DAILY PRN 05/31 1215 AC PO Senna/Docusate Sodium 1 TAB BID 05/31 2200 AC PO Sodium Chloride 500 ML BOLUS ONE 05/30 1815 DC 05/30 IV 05/30 1914 1847 Sodium Chloride 500 ML BOLUS ONE 05/30 1630 DC 05/30 IV 05/30 1729 1640 Sodium Chloride 500 ML BOLUS ONE 05/30 1530 DC 05/30 IV 05/30 1629 1533 Tizanidine HCl 3 MG BID 05/30 2200 AC 05/31 PO 0903 Vancomycin HCl 0 .STK-MED ONE 05/30 1946 DC .ROUTE Vancomycin HCl 1,000 MG ONCE ONE 05/30 1929 DC 05/30 Dextrose/Water 250 ML IV 05/30 Review of Systems Review of Systems: Unobtainable from the patient Past History Travel History Traveled to [place] past 21 day No Medical History Neurological: dementia, SEIZURES EENT: NONE Cardiovascular: aortic aneurysm, hypertension, hyperlipidemia Respiratory: NONE Gastrointestinal: NONE Hepatic: NONE Renal: NONE Musculoskeletal: OSTEOARTHRITIS L HIP FX 08/15/13 Psychiatric: depression Endocrine: NONE Blood Disorders: NONE Cancer(s): NONE 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 Surgical History Surgical History: non-contributory Family History Relations & Conditions If Any: MOTHER FH: diabetes mellitus Psychosocial History Services at Home: None Smoking Status: Unknown If Ever Smoked ETOH Use: denies use Illicit Drug Use: UTD Exam & Diagnostic Data Vital Signs and I&O Vital Signs Date Time Temp Pulse Resp B/P Pulse O2 O2 Flow FiO2 Ox Delivery Rate 05/31 0903 97.1 64 16 158/72 05/31 0801 97.1 63 16 158/72 95 05/31 0122 97 05/30 2036 97.4 63 14 164/74 97 Room Air 05/30 1947 96.6 72 24 147/73 94 Room Air 05/30 1802 97.4 73 15 135/77 95 Room Air Room Air 05/30 1720 97.7 92 20 158/77 95 Room Air Room Air 05/30 1618 97.5 87 15 172/102 94 Room Air Room Air 05/30 1530 95 Room Air Room Air 05/30 1525 98.7 96 15 159/94 92 Room Air Room Air Intake & Output 05/31 1600 05/31 0800 05/31 0000 05/30 1600 05/30 0800 05/30 0000 Intake Total 260 525 500 Output Total 200 520 Balance 260 325 -20 Intake, IV 500 Intake, Oral 260 525 0 Output, Urine 200 520 Patient 110 lb 125 lb Weight Physical Exam: Elderly confused lady in no acute distress HEENT exam normal Chest clear to limited exam Heart regular rhythm and soft systolic murmur at the base Extremities no edema Labs/Bk Results: Laboratory Tests 05/31 05/31 05/31 1208 0505 0505 Chemistry Sodium (137 - 145 mmol/L) 148 H 154 H Potassium (3.5 - 5.1 mmol/L) 4.2 4.6 Chloride (98 - 107 mmol/L) 113 H 116 H Carbon Dioxide (22 - 30 mmol/L) 27 29 Anion Gap (5 - 16) 8 9 BUN (7 - 17 mg/dL) 33 H 38 H Creatinine (0.5 - 1.0 mg/dL) 1.0 1.2 H Estimated GFR (>60 ml/min) 53 L 43 L BUN/Creatinine Ratio (7 - 25 %) 33.0 H 31.7 H Magnesium (1.6 - 2.3 mg/dL) 2.2 Troponin I (< 0.11 ng/ml) 0.02 Hematology CBC w Diff NO MAN DIFF REQ WBC (4.8 - 10.8 /CUMM) 7.0 RBC (4.20 - 5.40 /CUMM) 3.20 L Hgb (12.0 - 16.0 G/DL) 10.1 L Hct (37 - 47 %) 30.6 L MCV (81.0 - 99.0 FL) 95.7 MCH (27.0 - 31.0 PG) 31.6 H RDW (11.5 - 14.5 %) 14.2 Plt Count (130 - 400 /CUMM) 161 MPV (7.4 - 10.4 FL) 8.2 Gran % (42.2 - 75.2 %) 70.4 Lymphocytes % (20.5 - 51.1 %) 20.4 L Monocytes % (1.7 - 9.3 %) 7.8 Eosinophils % (0 - 5 %) 1.0 Basophils % (0.0 - 2.0 %) 0.4 Absolute Granulocytes (1.4 - 6.5 /CUMM) 4.9 Absolute Lymphocytes (1.2 - 3.4 /CUMM) 1.4 Absolute Monocytes (0.10 - 0.60 /CUMM) 0.5 Absolute Eosinophils (0.0 - 0.7 /CUMM) 0.1 Absolute Basophils (0.0 - 0.2 /CUMM) 0 PUBS MCHC (33.0 - 37.0 G/DL) 33.0 /17 05/30 2245 1839 1613 Chemistry Sodium (137 - 145 mmol/L) 153 H Potassium (3.5 - 5.1 mmol/L) 4.0 Chloride (98 - 107 mmol/L) 117 H Carbon Dioxide (22 - 30 mmol/L) 26 Anion Gap (5 - 16) 10 BUN (7 - 17 mg/dL) 39 H Creatinine (0.5 - 1.0 mg/dL) 1.0 Estimated GFR (>60 ml/min) 53 L BUN/Creatinine Ratio (7 - 25 %) 39.0 H Lactic Acid (0.7 - 2.1 mmol/L) 0.8 Troponin I (< 0.11 ng/ml) 0.02 Coagulation PT (9.4 - 12.5 SEC) 12.5 INR (0.90 - 1.19) 1.19 Urines Urine Color (YEL,AMB,STR) STRAW Urine Clarity (CLEAR) TURBD H Urine pH (5.0 - 8.0) 6.0 Ur Specific [place] (1.001 - 1.035) 1.025 Urine Protein (NEG,<30 MG/DL) 100 H Urine Ketones (NEG) NEG Urine Nitrite (NEG) POS H Urine Bilirubin (NEG) NEG Urine Urobilinogen (0.1 - 1.0 EU/dl) 0.2 Ur Leukocyte Esterase (NEG) LARGE H Ur Microscopic SEDIMENT EXAMINED Urine WBC (0 - 2 /HPF) PACKD H Urine Hemoglobin (NEG) MOD H Urine Glucose (N MG/DL) NEG 05/30 05/30 1613 1540 Blood Gas pH (7.35 - 7.45 PH) 7.40 pCO2 (35 - 45 TORR) 41 pO2 (80 - 100 TORR) 66 L HCO3 (21 - 28 MEQ/L) 25 ABG O2 Sat (Measured) (>96.0 %) 92.0 L P-50 (Temp Corrected) N Carboxyhemoglobin (1.5 - 5.0 %) 0.1 L O2 Concentration % R/A Temperature (97.0 - 100.0 FARH) 98.7 Miscellaneous Phlebotomy Draw Site RIGHT RADIAL Toxicology Urine Opiates Screen (>2000 NG/ML) < 100.00 Methadone Screen (>300 NG/ML) 50 Barbiturate Screen (>200 NG/ML) < 60 Ur Phencyclidine Scrn (>25 NG/ML) < 6.00 Amphetamines Screen (>1000 NG/ML) < 100 U Benzodiazepines Scrn (>200 NG/ML) < 85 Urine Cocaine Screen (>300 NG/ML) < 50 Urine Cannabis Screen (>50 NG/ML) < 5.00 Urines Urine Osmolality (300 - 1000 MOSM/KG) 462 Ur Random Creatinine (mg/dL) 98.7 Ur Random Sodium (30 - 90 mmol/L) 83 Ur Random Potassium (mmol/L) 55.0 Fraction Sodium Excret (<1% %) 0.7 05/30 1529 Chemistry Sodium (137 - 145 mmol/L) 153 H Potassium (3.5 - 5.1 mmol/L) 4.8 Chloride (98 - 107 mmol/L) 113 H Carbon Dioxide (22 - 30 mmol/L) 28 Anion Gap (5 - 16) 12 BUN (7 - 17 mg/dL) 46 H Creatinine (0.5 - 1.0 mg/dL) 1.2 H Estimated GFR (>60 ml/min) 43 L BUN/Creatinine Ratio (7 - 25 %) 38.3 H Glucose (65 - 99 mg/dL) 117 H Lactic Acid (0.7 - 2.1 mmol/L) 2.2 H Calcium (8.4 - 10.2 mg/dL) 8.6 Phosphorus (2.5 - 4.5 mg/dL) 3.9 Magnesium (1.6 - 2.3 mg/dL) 2.4 H Total Bilirubin (0.2 - 1.3 mg/dL) 0.7 AST (14 - 36 U/L) 28 ALT (9 - 52 U/L) 22 Alkaline Phosphatase (<127 U/L) 119 Ammonia (9 - 30 umol/L) < 9 L Troponin I (< 0.11 ng/ml) 0.01 Total Protein (6.3 - 8.2 g/dL) 7.1 Albumin (3.5 - 5.0 g/dL) 3.5 Globulin (1.9 - 4.2 gm/dL) 3.6 Albumin/Globulin Ratio (1.1 - 2.2 %) 1.0 L Hematology CBC w Diff NO MAN DIFF REQ WBC (4.8 - 10.8 /CUMM) 8.7 RBC (4.20 - 5.40 /CUMM) 4.04 L Hgb (12.0 - 16.0 G/DL) 12.6 Hct (37 - 47 %) 38.3 MCV (81.0 - 99.0 FL) 94.7 MCH (27.0 - 31.0 PG) 31.2 H RDW (11.5 - 14.5 %) 14.5 Plt Count (130 - 400 /CUMM) 230 MPV (7.4 - 10.4 FL) 8.6 Gran % (42.2 - 75.2 %) 61.8 Lymphocytes % (20.5 - 51.1 %) 29.0 Monocytes % (1.7 - 9.3 %) 8.4 Eosinophils % (0 - 5 %) 0.3 Basophils % (0.0 - 2.0 %) 0.5 Absolute Granulocytes (1.4 - 6.5 /CUMM) 5.4 Absolute Lymphocytes (1.2 - 3.4 /CUMM) 2.5 Absolute Monocytes (0.10 - 0.60 /CUMM) 0.7 H Absolute Eosinophils (0.0 - 0.7 /CUMM) 0 Absolute Basophils (0.0 - 0.2 /CUMM) 0 PUBS MCHC (33.0 - 37.0 G/DL) 32.9 L Diagnostic Data EKG Results EKG shows sinus rhythm rate of 63 with occasional atrial premature beats, left axis deviation, nonspecific anterior T-wave changes. CXR Results PATIENT: KATARINA ORTEGA PRESENT AGE: 86 PATIENT ACCOUNT NO: [id number] : 32 LOCATION: [facility] ORDERING PHYSICIAN: MANSI GONG MD SERVICE DATE: 05/30/16 EXAM TYPE: RAD - XRY-PORTABLE CHEST XRAY EXAMINATION: XR PORTABLE CHEST CLINICAL INFORMATION: Altered mental status. COMPARISON: Chest x-ray 12/09/2014 TECHNIQUE: Portable AP portable view of the chest was obtained. 3:32 PM FINDINGS: Status post median sternotomy for CABG. Heart size is normal. There are calcifications of thoracic aorta. Lungs are clear. No pulmonary vascular congestion or pleural effusion. No pneumothorax. Compared to prior chest x-ray 12/09/2014 is been no change. IMPRESSION: No acute abnormality of the chest. DICTATED BY: GEOVANNA VASQUEZ MD DATE/TIME DICTATED:05/30/161547 [employer] SANITATION:CIRA DATE/TIME TRANSCRIBED:05/30/161547 CONFIDENTIAL, DO NOT COPY WITHOUT APPROPRIATE AUTHORIZATION. <Electronically signed in Other Vendor System> SIGNED BY: GEOVANNA VASQUEZ MD 05/30/16 3397 Assessment/Plan Assessment/Plan This patient presented with poor responsiveness probably secondary to urinary tract infection and dehydration with hypernatremia. There does not appear to be any cardiac involvement. Her cardiac enzymes are negative. There have not been any clinically significant arrhythmias. She appears improved but is at her baseline level of dementia at this point. She is mildly bradycardic but is only on a very small dose of beta cathryn. At this point I recommend no changes in her cardiac regimen. I would watch her on a monitor overnight and if she is stable within the telemetry can be discontinued. The rest of her treatment for urinary tract infection and dehydration should continue until she is back at baseline and can be transferred back to the [facility]. Copies To: BRIA TATE MD Consult Acknowledgment - Thank you for your consult request.
[2016-05-31 16:20] VITALS: BP 158/76
[2016-06-01 00:34] VITALS: BP 160/80
--- NOTE | 2016-06-01 02:15 | NUR ---
PT APPEARED TO BE IN A FLUTTER ON THE MONITOR, HR 59. AT THIS TIME PATIENT WAS SLEEPING SOUNDLY. BP 122/64. NO S/S DISTRESS. PT IS NOW BACK IN SINUS ARRITHYMIA. DR ABDI NOTIFIED OF THESE CHANGES.
[2016-06-01 07:51] VITALS: BP 164/72
[2016-06-01 08:07] LABS: ABSOLUTE BASOPHIL COUNT 0 /CUMM (0.0-0.2); ABSOLUTE EOSINOPHIL COUNT 0.2 /CUMM (0.0-0.7); ABSOLUTE GRANULOCYTE CT 4.1 /CUMM (1.4-6.5); ABSOLUTE LYMPH COUNT 2.3 /CUMM (1.2-3.4); ABSOLUTE MONOCYTE COUNT 0.5 /CUMM (0.10-0.60); BASOPHIL % 0.5 % (0.0-2.0); EOSINOPHIL % 2.3 % (0-5); GRANULOCYTE % 57.4 % (42.2-75.2); HEMATOCRIT 29.7 % (37-47); MEAN CORPUSCULAR HGB 31.5 PG (27.0-31.0); MEAN CORPUSCULAR HGB CONC 33.3 G/DL (33.0-37.0); MEAN CORPUSCULAR VOLUME 94.6 FL (81.0-99.0); MEAN PLATELET VOLUME 8.5 FL (7.4-10.4); PLATELET COUNT 149 /CUMM (130-400); RBC DISTRIBUTION WIDTH 14.3 % (11.5-14.5); RED BLOOD CELL CT 3.14 /CUMM (4.20-5.40); WHITE BLOOD CELL COUNT 7.2 /CUMM (4.8-10.8)
--- NOTE | 2016-06-01 08:26 | Event Note ---
Event Note Event Note: had an episode of what looks like new onset a.flutter on telemetry for 1-2 minutes. spontaneously reverted to her baseline rhythm. Rhythm strips on binder. Chads-vasc >2; pt is not on any anticoagulation other than ASA.
--- NOTE | 2016-06-01 08:47 | PN- Housestaff ---
Subjective Follow-up For: 1. Syncopal episode 2. UTI 3. Hypernatremia Tele-Events Since Last Visit: Sinus rhythm, atrial flutter PACs, rate in 60s Subjective: Patient seen and examined. She offers no complaints. Denies headache, nausea, vomiting, shortness of breath, chest pain, abdominal pain, urinary symptoms. vital signs remained stable. No overnight events reported. Na level has improved to 141, creatinine improved to 0.9. Review of Systems Constitutional: Denies: no symptoms. Objective Last 24 Hrs of Vital Signs/I&O Vital Signs Date Time Temp Pulse Resp B/P Pulse O2 O2 Flow FiO2 Ox Delivery Rate 06/01 0849 97.6 60 22 164/72 06/01 0751 97.6 60 22 164/72 98 Room Air 06/01 0034 98.0 62 18 160/80 96 Room Air 05/31 2111 82 152/78 05/31 1620 98.9 71 18 158/76 94 Intake & Output 06/01 1600 06/01 0800 06/01 0000 Intake Total 595 1580 Output Total 300 750 Balance 295 830 Intake, IV 355 600 Intake, Oral 240 980 Number 1 2 Bowel Movements Output, Urine 300 750 Physical Exam General Appearance: Alert, Oriented X3, Cooperative Skin: No Rashes, No Breakdown, No Significant Lesion HEENT: Atraumatic, PERRLA, EOMI, Mucous Membr. moist/pink Neck: Supple, No JVD, No thryomegaly, +2 Carotid Pulse wo Bruit, No LAD Lymphatic: Axillary nl, Cervical nl Cardiovascular: Regular Rate, Normal S1, Normal S2, No Murmurs Lungs: diminished breath sounds Abdomen: Normal Bowel Sounds, Soft, No Tenderness, No Hepatospenomegaly, No Masses Neurological: Normal Speech, Strength at 5/5 X4 Ext, Normal Tone, Sensation Intact Extremities: No Clubbing, No Cyanosis, No Edema, Normal Pulses, No Tenderness/ Swelling Vascular: Pulses Symmetrical Current Medications: Current Medications Sig/Kayden Start time Last Medication Dose Route Stop Time Status Admin Acetaminophen 650 MG Q6P PRN 05/30 1830 AC PO Aspirin Buffered 81 MG DAILY 05/31 1000 AC 06/01 PO 0849 Atorvastatin Calcium 20 MG 1700 05/31 1700 AC 05/31 PO 1612 Dextrose/Water 1,000 ML Q13H 05/31 1215 AC 05/31 IV 1621 Dextrose/Water 1,000 ML ONCE ONE 05/31 0615 DC 05/31 IV 05/31 1414 0635 Escitalopram Oxalate 10 MG DAILY 05/31 1000 AC 06/01 PO 0849 Lidocaine 1 RADHA TID PRN 05/31 1630 AC 05/31 TOP 2113 Lidocaine 1 RADHA TID PRN 05/31 1615 CAN TOP Lidocaine 1 RADHA TID 05/30 2200 DC TOP Magnesium Hydroxide 30 ML Q3D PRN 05/30 2000 AC PO Memantine 10 MG BID 05/30 2200 AC 06/01 PO 0849 Metoprolol Tartrate 12.5 MG BID 05/31 1000 AC 06/01 PO 0849 Oxycodone/ 1 TAB Q6P PRN 05/30 1830 DC Acetaminophen PO Oxycodone/ 2 TAB Q6P PRN 05/30 1830 DC Acetaminophen PO Polyethylene Glycol 17 GM DAILY PRN 05/31 1215 AC PO Senna/Docusate Sodium 1 TAB BID 05/31 2200 AC 06/01 PO 0849 Tizanidine HCl 3 MG BID 05/30 2200 AC 06/01 PO 0849 Last 24 Hrs of Lab/Bk Results Last 24 Hrs of Labs/Mics: Laboratory Tests 06/01/16 0620: Anion Gap 9, Estimated GFR 60, BUN/Creatinine Ratio 26.7 H, CBC w Diff NO MAN DIFF REQ, RBC 3.14 L, MCV 94.6, MCH 31.5 H, RDW 14.3, MPV 8.5, Gran % 57.4, Lymphocytes % 32.5, Monocytes % 7.3, Eosinophils % 2.3, Basophils % 0.5, Absolute Granulocytes 4.1, Absolute Lymphocytes 2.3, Absolute Monocytes 0.5, Absolute Eosinophils 0.2, Absolute Basophils 0, PUBS MCHC 33.3 05/31/16 2030: Anion Gap 9, Estimated GFR 53 L, BUN/Creatinine Ratio 29.0 H 05/31/16 1208: Anion Gap 8, Estimated GFR 53 L, BUN/Creatinine Ratio 33.0 H, Magnesium 2.2 Assessment/Plan Assessment: This is a 89-year-old lady with past medical history significant for CAD status post CABG 34 ALANIS graft to LAD and individual saphenous vein grafts to circumflex marginal branch and posterior descending artery (2009), DM, HTN, HLD, AAA. [facility] after a syncopal episode. VS: 159/72, HR 96, RR 50, SPO2 92% on RA, T 98.7 Pertinent labs: WBC 8.7, H&H 12.6/36.3, platelets 230 Sodium 153 Potassium 4.8 Lactic acid 2.2 BUN/CR 46/1.2 UA: Turbid color, 100 protein, positive nitrites, large leukocyte esterase, packed WBCs CXR: No acute abdomen of chest Head CT: Severe chronic white matter microangiopathy and diffuse parenchymal volume loss. No acute intracranial hemorrhage. The possibility of a focal acute ischemic process cannot be ruled out on the basis of this study given extent of white matter disease. Problem list * Syncopal episode * UTI * Hypernatremia; second due to dehydration, improved * Elevated lactic acid * Constipation * Acute kidney injury * Dehydratio Plan * Continue telemetry monitoring * Serial EKGs and troponins remained negative * Orthostatics every shift, so far negative * Continue with gentle hydration * Continue with aggressive bowel regimen * Blood cultures remain negative so far * Rapid flu negative * Urine culture pending * Swallow evaluation done yesterday: Minimal aspiration risk, diet to be advanced as tolerated. On cardiac diet. * DVT prophylaxis at that times. * DNI/DNR Problem List: 1. Syncope Pain Ratin Pain Location: NA Pain Goal: Remain pain free Pain Plan: Pt is pain free Tomorrow's Labs & Rationales: CBC to monitor leukocytosis BEP to monitor electrolytes
--- NOTE | 2016-06-01 10:00 | PN- Housestaff ---
Subjective Subjective: Patient seen and examined. Patient reports of back pain. Assessment/Plan Assessment: This is a 89-year-old lady with past medical history significant for CAD status post CABG 34 ALANIS graft to LAD and individual saphenous vein grafts to circumflex marginal branch and posterior descending artery (2009), DM, HTN, HLD, AAA. She was brought to the hospital from rehabilitation facility ([facility]) after a syncopal episode. VS: 159/72, HR 96, RR 50, SPO2 92% on RA, T 98.7 Pertinent labs: WBC 8.7, H&H 12.6/36.3, platelets 230 Sodium 153 Potassium 4.8 Lactic acid 2.2 BUN/CR 46/1.2 UA: Turbid color, 100 protein, positive nitrites, large leukocyte esterase, packed WBCs CXR: No acute abdomen of chest Head CT: Severe chronic white matter microangiopathy and diffuse parenchymal volume loss. No acute intracranial hemorrhage. The possibility of a focal acute ischemic process cannot be ruled out on the basis of this study given extent of white matter disease. Problem list * Syncopal episode * UTI * Hypernatremia; second due to dehydration, improved * Elevated lactic acid * Constipation * Acute kidney injury * Dehydratio Plan * Continue telemetry monitoring * Serial EKGs and troponins remained negative * Orthostatics every shift, so far negative * Continue with gentle hydration * Continue with aggressive bowel regimen * Blood cultures remain negative so far * Rapid flu negative * Urine culture pending * Swallow evaluation done yesterday: Minimal aspiration risk, diet to be advanced as tolerated. On cardiac diet. * DVT prophylaxis at that times. * DNI/DNR
--- NOTE | 2016-06-01 11:01 | PN- Pulmonary ---
Subjective HPI/Critical Care Issues: Patient seen and examined. She offers no complaints. Denies headache, nausea, vomiting, shortness of breath, chest pain, abdominal pain, urinary symptoms. vital signs remained stable. No overnight events reported. Na level has improved to 141, creatinine improved to 0.9. Review of Systems Constitutional: Denies: no symptoms. Objective Current Medications: Current Medications Sig/Kayden Start time Last Medication Dose Route Stop Time Status Admin Acetaminophen 650 MG Q6P PRN 05/30 1830 AC PO Aspirin Buffered 81 MG DAILY 05/31 1000 AC 06/01 PO 0849 Atorvastatin Calcium 20 MG 1700 05/31 1700 AC 05/31 PO 1612 Dextrose/Water 1,000 ML Q13H 05/31 1215 AC 05/31 IV 1621 Dextrose/Water 1,000 ML ONCE ONE 05/31 0615 DC 05/31 IV 05/31 1414 0635 Escitalopram Oxalate 10 MG DAILY 05/31 1000 AC 06/01 PO 0849 Lidocaine 1 RADHA TID PRN 05/31 1630 AC 05/31 TOP 2113 Lidocaine 1 RADHA TID PRN 05/31 1615 CAN TOP Lidocaine 1 RADHA TID 05/30 2200 DC TOP Magnesium Hydroxide 30 ML Q3D PRN 05/30 2000 AC PO Memantine 10 MG BID 05/30 2200 AC 06/01 PO 0849 Metoprolol Tartrate 12.5 MG BID 05/31 1000 AC 06/01 PO 0849 Oxycodone/ 1 TAB Q6P PRN 05/30 1830 DC Acetaminophen PO Oxycodone/ 2 TAB Q6P PRN 05/30 1830 DC Acetaminophen PO Polyethylene Glycol 17 GM DAILY PRN 05/31 1215 AC PO Senna/Docusate Sodium 1 TAB BID 05/31 2200 AC 06/01 PO 0849 Tizanidine HCl 3 MG BID 05/30 2200 AC 06/01 PO 0849 Vital Signs & I&O Last 24 Hrs of Vitals and I&O: Vital Signs Date Time Temp Pulse Resp B/P Pulse O2 O2 Flow FiO2 Ox Delivery Rate 06/01 0849 97.6 60 22 164/72 06/01 0751 97.6 60 22 164/72 98 Room Air 06/01 0034 98.0 62 18 160/80 96 Room Air 05/31 2111 82 152/78 05/31 1620 98.9 71 18 158/76 94 Intake & Output 06/01 1600 06/01 0800 06/01 0000 Intake Total 595 1580 Output Total 300 750 Balance 295 830 Intake, IV 355 600 Intake, Oral 240 980 Number 1 2 Bowel Movements Output, Urine 300 750 Laboratory Tests 06/01 05/31 05/31 0620 2030 1208 Chemistry Sodium (137 - 145 mmol/L) 141 145 148 H Potassium (3.5 - 5.1 mmol/L) 3.9 4.0 4.2 Chloride (98 - 107 mmol/L) 109 H 108 H 113 H Carbon Dioxide (22 - 30 mmol/L) 24 28 27 Anion Gap (5 - 16) 9 9 8 BUN (7 - 17 mg/dL) 24 H 29 H 33 H Creatinine (0.5 - 1.0 mg/dL) 0.9 1.0 1.0 Estimated GFR (>60 ml/min) 60 53 L 53 L BUN/Creatinine Ratio (7 - 25 %) 26.7 H 29.0 H 33.0 H Magnesium (1.6 - 2.3 mg/dL) 2.2 Hematology CBC w Diff NO MAN DIFF REQ WBC (4.8 - 10.8 /CUMM) 7.2 RBC (4.20 - 5.40 /CUMM) 3.14 L Hgb (12.0 - 16.0 G/DL) 9.9 L Hct (37 - 47 %) 29.7 L MCV (81.0 - 99.0 FL) 94.6 MCH (27.0 - 31.0 PG) 31.5 H RDW (11.5 - 14.5 %) 14.3 Plt Count (130 - 400 /CUMM) 149 MPV (7.4 - 10.4 FL) 8.5 Gran % (42.2 - 75.2 %) 57.4 Lymphocytes % (20.5 - 51.1 %) 32.5 Monocytes % (1.7 - 9.3 %) 7.3 Eosinophils % (0 - 5 %) 2.3 Basophils % (0.0 - 2.0 %) 0.5 Absolute Granulocytes (1.4 - 6.5 /CUMM) 4.1 Absolute Lymphocytes (1.2 - 3.4 /CUMM) 2.3 Absolute Monocytes (0.10 - 0.60 /CUMM) 0.5 Absolute Eosinophils (0.0 - 0.7 /CUMM) 0.2 Absolute Basophils (0.0 - 0.2 /CUMM) 0 PUBS MCHC (33.0 - 37.0 G/DL) 33.3 05/31 05/31 05/30 05/30 0505 0505 3745 1839 Chemistry Sodium (137 - 145 mmol/L) 154 H 153 H Potassium (3.5 - 5.1 mmol/L) 4.6 4.0 Chloride (98 - 107 mmol/L) 116 H 117 H Carbon Dioxide (22 - 30 mmol/L) 29 26 Anion Gap (5 - 16) 9 10 BUN (7 - 17 mg/dL) 38 H 39 H Creatinine (0.5 - 1.0 mg/dL) 1.2 H 1.0 Estimated GFR (>60 ml/min) 43 L 53 L BUN/Creatinine Ratio (7 - 25 %) 31.7 H 39.0 H Lactic Acid (0.7 - 2.1 mmol/L) 0.8 Troponin I (< 0.11 ng/ml) 0.02 0.02 Coagulation PT (9.4 - 12.5 SEC) 12.5 INR (0.90 - 1.19) 1.19 Hematology CBC w Diff NO MAN DIFF REQ WBC (4.8 - 10.8 /CUMM) 7.0 RBC (4.20 - 5.40 /CUMM) 3.20 L Hgb (12.0 - 16.0 G/DL) 10.1 L Hct (37 - 47 %) 30.6 L MCV (81.0 - 99.0 FL) 95.7 MCH (27.0 - 31.0 PG) 31.6 H RDW (11.5 - 14.5 %) 14.2 Plt Count (130 - 400 /CUMM) 161 MPV (7.4 - 10.4 FL) 8.2 Gran % (42.2 - 75.2 %) 70.4 Lymphocytes % (20.5 - 51.1 %) 20.4 L Monocytes % (1.7 - 9.3 %) 7.8 Eosinophils % (0 - 5 %) 1.0 Basophils % (0.0 - 2.0 %) 0.4 Absolute Granulocytes (1.4 - 6.5 /CUMM) 4.9 Absolute Lymphocytes (1.2 - 3.4 /CUMM) 1.4 Absolute Monocytes (0.10 - 0.60 /CUMM) 0.5 Absolute Eosinophils (0.0 - 0.7 /CUMM) 0.1 Absolute Basophils (0.0 - 0.2 /CUMM) 0 PUBS MCHC (33.0 - 37.0 G/DL) 33.0 05/30 05/30 1613 1613 Toxicology Urine Opiates Screen (>2000 NG/ML) < 100.00 Methadone Screen (>300 NG/ML) 50 Barbiturate Screen (>200 NG/ML) < 60 Ur Phencyclidine Scrn (>25 NG/ML) < 6.00 Amphetamines Screen (>1000 NG/ML) < 100 U Benzodiazepines Scrn (>200 NG/ML) < 85 Urine Cocaine Screen (>300 NG/ML) < 50 Urine Cannabis Screen (>50 NG/ML) < 5.00 Urines Urine Color (YEL,AMB,STR) STRAW Urine Clarity (CLEAR) TURBD H Urine pH (5.0 - 8.0) 6.0 Ur Specific [place] (1.001 - 1.035) 1.025 Urine Protein (NEG,<30 MG/DL) 100 H Urine Ketones (NEG) NEG Urine Nitrite (NEG) POS H Urine Bilirubin (NEG) NEG Urine Urobilinogen (0.1 - 1.0 EU/dl) 0.2 Ur Leukocyte Esterase (NEG) LARGE H Ur Microscopic SEDIMENT EXAMINED Urine WBC (0 - 2 /HPF) PACKD H Urine Hemoglobin (NEG) MOD H Urine Osmolality (300 - 1000 MOSM/KG) 462 Ur Random Creatinine (mg/dL) 98.7 Ur Random Sodium (30 - 90 mmol/L) 83 Ur Random Potassium (mmol/L) 55.0 Fraction Sodium Excret (<1% %) 0.7 Urine Glucose (N MG/DL) NEG 05/30 05/30 1540 1529 Blood Gas pH (7.35 - 7.45 PH) 7.40 pCO2 (35 - 45 TORR) 41 pO2 (80 - 100 TORR) 66 L HCO3 (21 - 28 MEQ/L) 25 ABG O2 Sat (Measured) (>96.0 %) 92.0 L P-50 (Temp Corrected) N Carboxyhemoglobin (1.5 - 5.0 %) 0.1 L O2 Concentration % R/A Temperature (97.0 - 100.0 FARH) 98.7 Chemistry Sodium (137 - 145 mmol/L) 153 H Potassium (3.5 - 5.1 mmol/L) 4.8 Chloride (98 - 107 mmol/L) 113 H Carbon Dioxide (22 - 30 mmol/L) 28 Anion Gap (5 - 16) 12 BUN (7 - 17 mg/dL) 46 H Creatinine (0.5 - 1.0 mg/dL) 1.2 H Estimated GFR (>60 ml/min) 43 L BUN/Creatinine Ratio (7 - 25 %) 38.3 H Glucose (65 - 99 mg/dL) 117 H Lactic Acid (0.7 - 2.1 mmol/L) 2.2 H Calcium (8.4 - 10.2 mg/dL) 8.6 Phosphorus (2.5 - 4.5 mg/dL) 3.9 Magnesium (1.6 - 2.3 mg/dL) 2.4 H Total Bilirubin (0.2 - 1.3 mg/dL) 0.7 AST (14 - 36 U/L) 28 ALT (9 - 52 U/L) 22 Alkaline Phosphatase (<127 U/L) 119 Ammonia (9 - 30 umol/L) < 9 L Troponin I (< 0.11 ng/ml) 0.01 Total Protein (6.3 - 8.2 g/dL) 7.1 Albumin (3.5 - 5.0 g/dL) 3.5 Globulin (1.9 - 4.2 gm/dL) 3.6 Albumin/Globulin Ratio (1.1 - 2.2 %) 1.0 L Hematology CBC w Diff NO MAN DIFF REQ WBC (4.8 - 10.8 /CUMM) 8.7 RBC (4.20 - 5.40 /CUMM) 4.04 L Hgb (12.0 - 16.0 G/DL) 12.6 Hct (37 - 47 %) 38.3 MCV (81.0 - 99.0 FL) 94.7 MCH (27.0 - 31.0 PG) 31.2 H RDW (11.5 - 14.5 %) 14.5 Plt Count (130 - 400 /CUMM) 230 MPV (7.4 - 10.4 FL) 8.6 Gran % (42.2 - 75.2 %) 61.8 Lymphocytes % (20.5 - 51.1 %) 29.0 Monocytes % (1.7 - 9.3 %) 8.4 Eosinophils % (0 - 5 %) 0.3 Basophils % (0.0 - 2.0 %) 0.5 Absolute Granulocytes (1.4 - 6.5 /CUMM) 5.4 Absolute Lymphocytes (1.2 - 3.4 /CUMM) 2.5 Absolute Monocytes (0.10 - 0.60 /CUMM) 0.7 H Absolute Eosinophils (0.0 - 0.7 /CUMM) 0 Absolute Basophils (0.0 - 0.2 /CUMM) 0 PUBS MCHC (33.0 - 37.0 G/DL) 32.9 L Miscellaneous Phlebotomy Draw Site RIGHT RADIAL Microbiology Date/Time Procedure - Status Source Growth 05/30 1715 Blood Culture - RES BLOOD 05/30 1655 Influenza Virus A & B Rapid Smear - COMP NASOPHARYN 05/30 1645 Blood Culture - RES BLOOD 05/30 1613 Urine Culture - RES URINE ROUT GRAM NEGATIVE RODS Impression/Plan Impression/Plan Impression/Plan: Physical Exam General Appearance Arousable toloud verbal commands. HEENT Dry mucous membranes Cardiovascular Normal S1, Normal S2 Lungs DIminished breath sounds in the basilar regions BL Abdomen Soft, No Tenderness Neurological Patient is difficult to arouse at his time and unable to follow commands appropriately Extremities No Edema, Normal Pulses IMPRESSION 86 y/o lady lady with a PMH of CAD status post CABG 34 ALANIS graft to LAD and individual saphenous vein grafts to circumflex marginal branch and posterior descending artery (2009), DM, HTN, HLD, AAA. Rosie in from [facility] after a syncopal episode while at the [employer] office Issues include Near syncopal episode which is stable prob due to dehydration and hypernatremia UTI Hypernatremia due to dehydration Constipation resolving Acute kidney injury Dehydration Very severe chronic white matter changes with worsening overall mental status, with dementia Recommendation Gentle hydration for one more litre Follow cultures Continue antibiotics, pt not on any today and resume ceftriaxone and change to po in am when sensitivity and ID of gram neg bacterial available Agg bowel regimen DNR/DNI
--- NOTE | 2016-06-01 14:46 | PN- Cardiology ---
Subjective Subjective: The patient has improved with rehydration. She is being treated for gram- negative urinary tract infection. Her sodium is in the normal range and her BUN has improved. She is responsive and has no complaints but is confused. There have been no arrhythmias documented. Objective Vital Signs and I&Os Vital Signs Date Time Temp Pulse Resp B/P Pulse O2 O2 Flow FiO2 Ox Delivery Rate 06/01 0849 97.6 60 22 164/72 06/01 0751 97.6 60 22 164/72 98 Room Air 06/01 0034 98.0 62 18 160/80 96 Room Air 05/31 2111 82 152/78 05/31 1620 98.9 71 18 158/76 94 Intake & Output 06/01 1600 06/01 0800 06/01 0000 05/31 1600 05/31 0800 05/31 0000 Intake Total 595 1580 260 525 500 Output Total 300 750 200 520 Balance 295 830 260 325 -20 Intake, IV 355 600 500 Intake, Oral 240 980 260 525 0 Number 1 2 Bowel Movements Output, Urine 300 750 200 520 Patient 110 lb Weight Physical Exam: She is in no distress HEENT exam is normal chest is clear Heart is regular and mildly bradycardic with soft systolic murmur at the base Extremities no edema Current Medications: Current Medications Sig/Kayden Start time Last Medication Dose Route Stop Time Status Admin Acetaminophen 650 MG Q6P PRN 05/30 1830 AC PO Aspirin Buffered 81 MG DAILY 05/31 1000 AC 06/01 PO 0849 Atorvastatin Calcium 20 MG 1700 05/31 1700 AC 05/31 PO 1612 Ceftriaxone Sodium 1,000 MG DAILY 06/01 1124 AC 06/01 IV 1230 Dextrose/Water 1,000 ML Q13H 05/31 1215 AC 05/31 IV 1621 Escitalopram Oxalate 10 MG DAILY 05/31 1000 AC 06/01 PO 0849 Lidocaine 1 RADHA TID PRN 05/31 1630 AC 05/31 TOP 2113 Lidocaine 1 RADHA TID PRN 05/31 1615 CAN TOP Lidocaine 1 RADHA TID 05/30 2200 DC TOP Magnesium Hydroxide 30 ML Q3D PRN 05/30 2000 AC PO Memantine 10 MG BID 05/30 2200 AC 06/01 PO 0849 Metoprolol Tartrate 12.5 MG BID 05/31 1000 AC 06/01 PO 0849 Polyethylene Glycol 17 GM DAILY PRN 05/31 1215 AC PO Senna/Docusate Sodium 1 TAB BID 05/31 2199 AC 06/01 PO 0849 Tizanidine HCl 3 MG BID 05/30 2199 AC 06/01 PO 0849 Results Last 48 Hrs of Labs/Mics: Laboratory Tests 06/01/16 0620: Anion Gap 9, Estimated GFR 60, BUN/Creatinine Ratio 26.7 H, CBC w Diff NO MAN DIFF REQ, RBC 3.14 L, MCV 94.6, MCH 31.5 H, RDW 14.3, MPV 8.5, Gran % 57.4, Lymphocytes % 32.5, Monocytes % 7.3, Eosinophils % 2.3, Basophils % 0.5, Absolute Granulocytes 4.1, Absolute Lymphocytes 2.3, Absolute Monocytes 0.5, Absolute Eosinophils 0.2, Absolute Basophils 0, PUBS MCHC 33.3 05/31/16 2030: Anion Gap 9, Estimated GFR 53 L, BUN/Creatinine Ratio 29.0 H 05/31/16 1208: Anion Gap 8, Estimated GFR 53 L, BUN/Creatinine Ratio 33.0 H, Magnesium 2.2 05/31/16 0505: Troponin I 0.02 05/31/16 0505: Anion Gap 9, Estimated GFR 43 L, BUN/Creatinine Ratio 31.7 H, CBC w Diff NO MAN DIFF REQ, RBC 3.20 L, MCV 95.7, MCH 31.6 H, RDW 14.2, MPV 8.2, Gran % 70.4 , Lymphocytes % 20.4 L, Monocytes % 7.8, Eosinophils % 1.0, Basophils % 0.4, Absolute Granulocytes 4.9, Absolute Lymphocytes 1.4, Absolute Monocytes 0.5, Absolute Eosinophils 0.1, Absolute Basophils 0, PUBS MCHC 33.0 05/30/16 2245: Anion Gap 10, Estimated GFR 53 L, BUN/Creatinine Ratio 39.0 H, Troponin I 0.02 , PT 12.5, INR 1.19 05/30/16 1839: Lactic Acid 0.8 05/30/16 1613: Urine Color STRAW, Urine Clarity TURBD H, Urine pH 6.0, Ur Specific [place] 1.025, Urine Protein 100 H, Urine Ketones NEG, Urine Nitrite POS H, Urine Bilirubin NEG, Urine Urobilinogen 0.2, Ur Leukocyte Esterase LARGE H, Ur Microscopic SEDIMENT EXAMINED, Urine WBC PACKD H, Urine Hemoglobin MOD H, Urine Glucose NEG 05/30/16 1613: Urine Opiates Screen < 100.00, Methadone Screen 50, Barbiturate Screen < 60, Ur Phencyclidine Scrn < 6.00, Amphetamines Screen < 100, U Benzodiazepines Scrn < 85, Urine Cocaine Screen < 50, Urine Cannabis Screen < 5.00, Urine Osmolality 462, Ur Random Creatinine 98.7, Ur Random Sodium 83, Ur Random Potassium 55.0, Fraction Sodium Excret 0.7 05/30/16 1540: pH 7.40, pCO2 41, pO2 66 L, HCO3 25, ABG O2 Sat (Measured) 92.0 L, P-50 (Temp Corrected) N, Carboxyhemoglobin 0.1 L, O2 Concentration % R/A, Temperature 98.7 , Phlebotomy Draw Site RIGHT RADIAL 05/30/16 1529: Anion Gap 12, Estimated GFR 43 L, BUN/Creatinine Ratio 38.3 H, Glucose 117 H, Lactic Acid 2.2 H, Calcium 8.6, Phosphorus 3.9, Magnesium 2.4 H, Total Bilirubin 0.7, AST 28, ALT 22, Alkaline Phosphatase 119, Ammonia < 9 L, Troponin I 0.01, Total Protein 7.1, Albumin 3.5, Globulin 3.6, Albumin/Globulin Ratio 1.0 L, CBC w Diff NO MAN DIFF REQ, RBC 4.04 L, MCV 94.7, MCH 31.2 H, RDW 14.5, MPV 8.6, Gran % 61.8, Lymphocytes % 29.0, Monocytes % 8.4, Eosinophils % 0.3, Basophils % 0.5, Absolute Granulocytes 5.4, Absolute Lymphocytes 2.5, Absolute Monocytes 0.7 H, Absolute Eosinophils 0, Absolute Basophils 0, PUBS MCHC 32.9 L Microbiology 05/30 1655 NASOPHARYN: Influenza Virus A & B Rapid Smear - COMP Assessment/Plan Assessment/Plan The patient is stable from a cardiac standpoint. She is improved in terms of rehydration and correction of hypernatremia. Telemetry can be discontinued and the patient can be transferred back to the long-term when she is stable from a metabolic standpoint. Continue telemetry? No
[2016-06-01 15:46] VITALS: BP 153/89
[2016-06-01 22:00] VITALS: BP 154/90
--- NOTE | 2016-06-02 06:50 | PN- Housestaff ---
Subjective Follow-up For: Near syncope Dehydration with hypernatremia UTI AMELIA Chronic white matter changes Tele-Events Since Last Visit: Off tele. Subjective: Patient seen and examined at bedside this AM. She is resting comfortably in bed in no acute distress. History is limited 2/2 dementia, though no complaints are noted on ROS. Review of Systems Constitutional: Denies: chills, fever. EENTM: Denies: nasal congestion. Cardiovascular: Denies: chest pain, palpitations. Respiratory: Denies: cough, short of breath. Gastrointestinal: Denies: abdominal pain, nausea, vomiting. Genitourinary: Denies: dysuria. Objective Last 24 Hrs of Vital Signs/I&O Vital Signs Date Time Temp Pulse Resp B/P Pulse O2 O2 Flow FiO2 Ox Delivery Rate 06/02 0827 98.4 64 18 180/100 94 Room Air 06/01 2200 97.4 69 20 154/90 96 06/01 1546 98.0 64 16 153/89 95 Room Air Intake & Output 06/02 1600 06/02 0800 06/02 0000 Intake Total 420 160 Output Total 350 250 Balance 70 -90 Intake, IV 320 160 Intake, Oral 100 Number 1 Bowel Movements Output, Urine 350 250 Physical Exam General Appearance: Alert, Cooperative, No Acute Distress Skin: No Significant Lesion HEENT: Atraumatic, PERRLA, Mucous Membr. moist/pink Neck: +2 Carotid Pulse wo Bruit Lymphatic: Cervical nl Cardiovascular: Regular Rate, Normal S1, Normal S2 Lungs: Diminished breath sounds at bases, no added sounds appreciated. Abdomen: Normal Bowel Sounds, Soft, No Tenderness Neurological: Normal Tone Extremities: No Clubbing, No Cyanosis, No Edema Vascular: Pulses Symmetrical Current Medications: Current Medications Sig/Kayden Start time Last Medication Dose Route Stop Time Status Admin Acetaminophen 650 MG Q6P PRN 05/30 1830 AC PO Aspirin Buffered 81 MG DAILY 05/31 1000 AC 06/01 PO 0849 Atorvastatin Calcium 20 MG 1700 05/31 1700 AC 06/01 PO 1652 Ceftriaxone Sodium 1,000 MG DAILY 06/01 1124 AC 06/01 IV 1230 Dextrose/Water 1,000 ML Q13H 05/31 1215 AC 06/01 IV 1501 Escitalopram Oxalate 10 MG DAILY 05/31 1000 AC 06/01 PO 0849 Lidocaine 1 RADHA TID PRN 05/31 1630 AC 05/31 TOP 2113 Magnesium Hydroxide 30 ML Q3D PRN 05/30 2000 AC PO Memantine 10 MG BID 05/30 2199 AC 06/01 PO 214 Metoprolol Tartrate 12.5 MG BID 05/31 1000 AC 06/01 PO 214 Polyethylene Glycol 17 GM DAILY PRN 05/31 1215 AC PO Senna/Docusate Sodium 1 TAB BID 05/31 2199 AC 06/01 PO 2139 Tizanidine HCl 3 MG BID 05/30 2199 AC 06/01 PO 215 Last 24 Hrs of Lab/Bk Results Last 24 Hrs of Labs/Mics: Laboratory Tests 06/02/16618: Anion Gap 8, Estimated GFR > 60, BUN/Creatinine Ratio 21.3, CBC w Diff NO MAN DIFF REQ, RBC 3.20 L, MCV 94.1, MCH 31.4 H, RDW 13.6, MPV 8.5, Gran % 58.5, Lymphocytes % 31.4, Monocytes % 7.0, Eosinophils % 2.3, Basophils % 0.8, Absolute Granulocytes 4.2, Absolute Lymphocytes 2.3, Absolute Monocytes 0.5, Absolute Eosinophils 0.2, Absolute Basophils 0.1, PUBS MCHC 33.4 Orders Radiology Findings: CXR: IMPRESSION: No acute abnormality of the chest. Miscellaneous Findings: Head CT: IMPRESSION: Severe chronic white matter microangiopathy and diffuse parenchymal volume loss. No acute intracranial hemorrhage. The possibility of a focal acute ischemic process cannot be ruled out on the basis of this study given extent of white matter disease. Assessment/Plan Assessment: Ms. Riggs is a 89-year-old female with past medical history significant for CAD status post CABG 34 ALANIS graft to LAD and individual saphenous vein grafts to circumflex marginal branch and posterior descending artery (2009), DM, HTN, HLD, AAA. She was brought to the hospital from rehabilitation facility ([facility]) after a witnessed syncopal episode. In the ED: VS showed 159/94, HR 96, RR 15, SPO2 92% on RA, T 98.7. Pertinent labs included WBC 8.7, H&H 12.6/36.3, platelets 230, Sodium 153, Potassium 4.8, Lactic acid 2.2, BUN/CR 46/1.2. UA showed turbid color, 100 protein, positive nitrites, large leukocyte esterase, packed WBCs. CXR was done and showed no acute abnormality of the chest. Head CT: Severe chronic white matter microangiopathy and diffuse parenchymal volume loss. No acute intracranial hemorrhage. The possibility of a focal acute ischemic process cannot be ruled out on the basis of this study given extent of white matter disease. Patient is admitted to the telemetry floor and the following is the problem list & management: Problem list * Syncopal episode * UTI * Hypernatremia; second due to dehydration, improved * Elevated lactic acid * Constipation * Acute kidney injury * Dehydratio Plan * Continue telemetry monitoring * Serial EKGs and troponins negative for ACS x3 * Orthostatics every shift, so far negative * Continue with gentle hydration, will encourage oral hydration at [facility] as likely patient was dehydrated resulting in syncopal episode * Continue with aggressive bowel regimen * Blood cultures remain negative so far, urine culture grew Klebsiella, will switch to PO bactrim for a total of 7 days * Rapid flu negative * Swallow evaluation done: Minimal aspiration risk, diet to be advanced as tolerated. On cardiac diet with pureed and nectar. * DVT prophylaxis at that times. * DNI/DNR Problem List: 1. AMELIA (acute kidney injury) 2. Hypernatremia 3. Syncope Pain Ratin Pain Location: N/A Pain Goal: Remain pain free Pain Plan: Mild pain pathway (tylenol). Tomorrow's Labs & Rationales: None, discharge today.
--- NOTE | 2016-06-02 07:49 | Discharge Summary ---
Visit Information Visit Dates Admission Date: 05/30/16 Discharge Date: 06/02/16 Hospital Course Course Attending Physician: BRIA CASTELLANOS MD Primary Care Physician: BRIA CASTELLANOS MD Hospital Course: This is a 89-year-old lady with past medical history significant for CAD status post CABG 34 ALANIS graft to LAD and individual saphenous vein grafts to circumflex marginal branch and posterior descending artery (2009), DM, HTN, HLD, AAA. She was brought to the hospital from rehabilitation facility ([facility]) after a syncopal episode. VS: 159/72, HR 96, RR 50, SPO2 92% on RA, T 98.7 Pertinent labs: WBC 8.7, H&H 12.6/36.3, platelets 230 Sodium 153 Potassium 4.8 Lactic acid 2.2 BUN/CR 46/1.2 UA: Turbid color, 100 protein, positive nitrites, large leukocyte esterase, packed WBCs CXR: No acute abdomen of chest Head CT: Severe chronic white matter microangiopathy and diffuse parenchymal volume loss. No acute intracranial hemorrhage. The possibility of a focal acute ischemic process cannot be ruled out on the basis of this study given extent of white matter disease. The following problems were addressed during the course of her hospital stay: #Syncopal episode: Most likely secondary to dehydration. She was admitted to telemetry monitored service. Cardiology was consulted and recommendations were followed; no change was recommended to her cardiac medications. Serial EKGs and troponins were checked and remained negative. Orthostatics were checked and remained negative. She received IV hydration. She was initially nothing by mouth, Swallow evaluation was done, who recommended pure/nectar diet. #UTI: Blood cultures remain negative so far, urine culture grew Klebsiella, she was initially started on IV ceftriaxone which was later on switched to PO bactrim for a total of 7 days. #Hypernatremia/AMELIA: Was likely secondary to dehydration. Received IV fluids, creatinine improved to 0.8 from 1.2 on admission. Sodium improved to 140 on from (153 on admission 05/30/2016). Oral hydration should be encouraged at rehabilitation. #Constipation: Received aggressive bowel regimen. Allergies: Coded Allergies: No Known Allergies (05/30/16) Disposition Summary Disposition Principal Diagnosis: Syncopal episode Additional Diagnosis: AK I Hypernatremia Discharge Disposition: SNF Discharge Instructions General Discharge Information Code Status: Do Not Resucitate/Intubat Patient's Diet: Cardiac diet with pureed and nectar. Patient's Activity: As tolerated Follow-Up Instructions/Appts: Please follow up with Dr. Castellanos within 1 week of discharge. Please encourage oral hydration so as to prevent recurrent dehydration Please take all medications as directed. Please follow up with your personal injury litigation paralegal within 1 week of discharge. Medications at Discharge Discharge Medications: Continue taking these medications: Acetaminophen (Acephen) 650 MG SUPP.RECT 1 SUPPOSITORY RECTALLY Q4H as needed for PAIN/TEMP>101 Comments: PER JUN IF UNABLE TO TAKE PO FORM NTE 3GM IN 24H Acetaminophen (Acetaminophen) 325 MG TABLET 2 Tablet ORAL Q4H as needed for PAIN/TEMP>101 Comments: PER JUN NTE 3GM IN 24H Aspirin (Ecotrin*) 81 MG TABLET.DR 1 Tablet ORAL DAILY Comments: PER JUN Escitalopram Oxalate (Lexapro) 10 MG TABLET 1 Tablet ORAL DAILY Comments: PER JUN Naloxone HCl (Narcan) 4 MG/ACTUATION SPRAY 4 Milligram In the nose As Directed as needed for OPIOID INDUCED RESP DEPRESSION Comments: 4 MG LATASHA PRN WAIT 2-3 MIN IF NO RESPONSE SLOW TO RESPOND REPEAT ONCE IN ALTERNATE NOSTRIL Lisinopril (Prinivil) 5 MG TABLET 1 Tablet ORAL DAILY Comments: PER JUN Metoprolol Tartrate (Metoprolol Tartrate) (Unknown Strength) TABLET 12.5 Milligram ORAL Q12H Comments: TARTRATE OR SUCCINATE NOT NOTED - PER JUN Atorvastatin Calcium (Lipitor) 20 MG TABLET 1 Tablet ORAL DAILY Comments: PER JUN Tizanidine HCl (Zanaflex) 2 MG CAPSULE 1 Capsule ORAL TAKE AT BEDTIME Comments: PER JUN Tizanidine HCl (Tizanidine HCl) 2 MG TABLET 1.5 Tablet ORAL TWICE DAILY Comments: PER JUN 3MG PO BID Memantine HCl (Namenda) 10 MG TABLET 1 Tablet ORAL TWICE DAILY Comments: PER JUN Calcium Carbonate/Vitamin D3 (Oyster Shell 500 MG + Vit D Tb) (Unknown Strength) TABLET 1 Tablet ORAL Every Morning Comments: PER JUN Bisacodyl (Dulcolax) 10 MG SUPP.RECT 1 Suppository RECTAL DAILY as needed for CONSTIPATION Comments: PER JUN IF MOM INEFFECTIVE Na Phos,M-B/Na Phos,Di-Ba (Fleet Enema) 19 GRAM-7 GRAM/118 ML ENEMA 1 Enema RECTAL DAILY as needed for CONSTIPATION Comments: PER JUN IF DULCOLAX SUPP INEFFECTIVE Magnesium Hydroxide (Milk Of Magnesia) 400 MG/5 ML ORAL.SUSP 30 Milliliters ORAL Every 3 days as needed for CONSTIPATION Comments: PER MAR Lidocaine HCl (Lidocaine HCl) 2 % JEL..ML. 1 Application On the skin THREE TIMES DAILY Comments: PER JUN Dimethicone (Proshield Plus) (Unknown Strength) OINT...G. 1 Application On the skin THREE TIMES DAILY Comments: UNKNOWN STRENGTH OR FORM (IE GEL, CREAM, LOTION, OINT); PER MAR STATES UNTIL HEALED ORDER DATE 11/16/2015 Start taking the following new medications: Sulfamethoxazole/Trimethoprim (Bactrim Ds Tablet) 800 MG-160 MG TABLET 1 Tablet ORAL TWICE DAILY Qty = 8 No Refills Copies To: KAITLIN WILLAMS,MARITZA Middleton
[2016-06-02 08:03] LABS: ABSOLUTE BASOPHIL COUNT 0.1 /CUMM (0.0-0.2); ABSOLUTE EOSINOPHIL COUNT 0.2 /CUMM (0.0-0.7); ABSOLUTE GRANULOCYTE CT 4.2 /CUMM (1.4-6.5); ABSOLUTE LYMPH COUNT 2.3 /CUMM (1.2-3.4); ABSOLUTE MONOCYTE COUNT 0.5 /CUMM (0.10-0.60); BASOPHIL % 0.8 % (0.0-2.0); EOSINOPHIL % 2.3 % (0-5); GRANULOCYTE % 58.5 % (42.2-75.2); HEMATOCRIT 30.1 % (37-47); MEAN CORPUSCULAR HGB 31.4 PG (27.0-31.0); MEAN CORPUSCULAR HGB CONC 33.4 G/DL (33.0-37.0); MEAN CORPUSCULAR VOLUME 94.1 FL (81.0-99.0); MEAN PLATELET VOLUME 8.5 FL (7.4-10.4); PLATELET COUNT 156 /CUMM (130-400); RBC DISTRIBUTION WIDTH 13.6 % (11.5-14.5); WHITE BLOOD CELL COUNT 7.2 /CUMM (4.8-10.8)
[2016-06-02 08:27] VITALS: BP 180/100
[2016-06-02] MEDS ORDERED: BACTRIM DS TAB1 EACH PO (10:41)
--- NOTE | 2016-06-02 10:43 | Patient Discharge Instructions ---
Discharge Instructions General Discharge Information You were seen/treated for: UTI Syncope Dehydration Special Instructions: Please follow up with Dr. Castellanos within 1 week of discharge. Please encourage oral hydration so as to prevent recurrent dehydration Please take all medications as directed. Please follow up with your sewage screen operator within 1 week of discharge. Diet Recommended Diet: Puree and nectar thick heart healthy diet. Activity Activity Self Limited: Yes Acute Coronary Syndrome Inclusion Criteria At DC or during hospital stay patient has or had the following: ACS DIAGNOSIS No Discharge Core Measures Meds if any: Prescribed or Continued at Discharge Meds if any: NOT Prescribed or Continued at Discharge Congestive Heart Failure Inclusion Criteria At DC or during hospital stay patient has or had the following: CHF DIAGNOSIS No Discharge Core Measures Meds if any: Prescribed or Continued at Discharge Meds if any: NOT Prescribed or Continued at Discharge Cerebrovascular accident Inclusion Criteria At DC or during hospital stay patient has or had the following: CVA/TIA Diagnosis No Discharge Core Measures Meds if any: Prescribed or Continued at Discharge Meds if any: NOT Prescribed or Continued at Discharge Venous thromboembolism Inclusion Criteria VTE Diagnosis No VTE Type NONE VTE Confirmed by (Test) NONE Discharge Core Measures - Per Current guidelines, there needs to be overlap - treatment for the first 5 days of Warfarin therapy. - If discharged on Warfarin prior to 5 days of - overlap therapy, the patient will need to be - assessed for post discharge needs including - *Post discharge parental anticoagulation - *Warfarin and/or parental anticoagulation education - *Follow up date to check INR post discharge At least 5 days overlap therapy as Inpatient No Meds if any: Prescribed or Continued at Discharge Note: Overlap Therapy is Warfarin and Anticoagulant Meds if any: NOT Prescribed or Continued at Discharge
--- NOTE | 2016-06-02 10:46 | PN- Att Addend ---
Attending Addendum Attending Brief Note Patient looking better mental status back to baseline no arrhytmias vital signs stable afebrile. Labs back to baseline Urine culture grew Klebsiella pneumonia sensitivities back to switch to PO antibiotic may return to SNF make sure she is well hydrated see CMR W10 and discharge summary. 24 TOTALS 06/02 0000 06/01 0000 Intake Total 1555 2365 Output Total 900 950 Balance 655 1415 Intake, IV 835 600 Intake, Oral 720 1765 Number 1 2 Bowel Movements Output, Urine 900 950 Patient 110 lb Weight Laboratory Tests 06/02/16 0619: Anion Gap 8, Estimated GFR > 60, BUN/Creatinine Ratio 21.3, CBC w Diff NO MAN DIFF REQ, RBC 3.20 L, MCV 94.1, MCH 31.4 H, RDW 13.6, MPV 8.5, Gran % 58.5, Lymphocytes % 31.4, Monocytes % 7.0, Eosinophils % 2.3, Basophils % 0.8, Absolute Granulocytes 4.2, Absolute Lymphocytes 2.3, Absolute Monocytes 0.5, Absolute Eosinophils 0.2, Absolute Basophils 0.1, PUBS MCHC 33.4 06/01/16 0620: Anion Gap 9, Estimated GFR 60, BUN/Creatinine Ratio 26.7 H, CBC w Diff NO MAN DIFF REQ, RBC 3.14 L, MCV 94.6, MCH 31.5 H, RDW 14.3, MPV 8.5, Gran % 57.4, Lymphocytes % 32.5, Monocytes % 7.3, Eosinophils % 2.3, Basophils % 0.5, Absolute Granulocytes 4.1, Absolute Lymphocytes 2.3, Absolute Monocytes 0.5, Absolute Eosinophils 0.2, Absolute Basophils 0, PUBS MCHC 33.3 05/31/16 2030: Anion Gap 9, Estimated GFR 53 L, BUN/Creatinine Ratio 29.0 H 05/31/16 1208: Anion Gap 8, Estimated GFR 53 L, BUN/Creatinine Ratio 33.0 H, Magnesium 2.2
[2016-06-02 13:04] VITALS: BP 138/72
== END 2016-06-02 13:30 | DRG 683 ==
LOC: ENRESERVTM → ENRESERVDT → ERH 15:17 → DELPENDDIS 17:49 → 1NO 17:49 → ENPENDDIS 17:49 → ERHI 17:49 → 1NO 21:28
PROVIDERS: Emergency Medicine; Internal Medicine; Student in an Organized Health Care Education/Training Program; ADMIT Internal Medicine
DX: N17.9 Acute kidney failure, unspecified (principal); N39.0 Urinary tract infection, site not specified; E87.0 Hyperosmolality and hypernatremia; I11.9 Hypertensive heart disease without heart failure; G30.9 Alzheimer's disease, unspecified; F02.80 Dementia in other diseases classified elsewhere, unspecified severity, without behavioral disturbance, psychotic disturbance, mood disturbance, and anxiety; E86.0 Dehydration; I25.10 Atherosclerotic heart disease of native coronary artery without angina pectoris; Z95.1 Presence of aortocoronary bypass graft; E78.5 Hyperlipidemia, unspecified; I71.4 Abdominal aortic aneurysm, without rupture; B96.1 Klebsiella pneumoniae [K. pneumoniae] as the cause of diseases classified elsewhere
CPT/HCPCS: 1NP; 84133; 84300; 36415; 80307; 81001; 82436; 82570; 87040; 87086; 87804; 87804-59; 92610-GN; 93005; 93010; 96361; 96374; 96375; J0696; J3370; J7040; J7042; J7060